=== PATIENT | female | born 1985 | race Caucasian/White ===

== ENCOUNTER → 2021-12-13 | Outpatient (CLI) | payer BC, SELFPAY ==
[2021-12-14 09:17] LABS: T4 Free Direct 0.98 ng/dL (0.76-1.46)
== END | disposition home or self-care (01) ==
LOC: LAB 12-14 08:39
PROVIDERS: PCP Internal Medicine; Referring Provider Internal Medicine; Visit Provider Internal Medicine
DX: N92.6 Irregular menstruation, unspecified (principal); R82.90 Unspecified abnormal findings in urine
CPT/HCPCS: 84439; 84443; 87077; 87086; 87088; 87186

== ENCOUNTER → 2022-04-12 | Outpatient (CLI) | payer BC, SELFPAY ==
[2022-04-12 16:44] LABS: Mucous, Urine 0 SEEN /hpf (<or=2+); Red Blood Cells-Urine 0 SEEN /hpf (0-5)
[2022-04-12 17:44] LABS: Color, Urine Yellow (Yellow); Glucose, Dipstick Normal (Normal); Ketone-Dipstick 5 mg/dl (Negative); Leukocyte Esterase-Dipstick Negative /ul (Negative); Nitrite-Dipstick Negative (Negative); Occult Blood-Urine Negative /ul (Negative); Protein-Dipstick Negative (Negative); Specific Gravity, Urine 1.015 (1.002-1.030); Urine Bilirubin Dipstick Negative (Negative); Urine Clarity Sl. Cloudy (Clear); Urine Urobilinogen Normal (Normal); Urine pH 6.5 (5.0 - 8.0)
[2022-04-12 20:07] LABS: Bacteria 2+ /hpf (None Seen); Squamous Epithelial Cells - UA 0-5 SEEN /hpf (5-10); White Blood Cells 0-5 SEEN /hpf (0-5)
== END | disposition home or self-care (01) ==
LOC: LAB 16:37
PROVIDERS: PCP Internal Medicine; Visit Provider Internal Medicine
DX: R82.90 Unspecified abnormal findings in urine (principal)
CPT/HCPCS: 81001; 87086

== ENCOUNTER → 2022-04-25 | Outpatient (CLI) | payer BC, SELFPAY ==
--- NOTE | 2022-04-25 09:00 | US_ITS ---
EXAM: US ABDOMEN LIMITED, LEFT UPPER QUADRANT CLINICAL INDICATION: Left Flank Pain TECHNIQUE: Real-time ultrasound of the right upper quadrant with image documentation. This report was created using [employer] report generation technology. COMPARISON: None. FINDINGS: PANCREAS: Unremarkable as visualized. Not fully seen distally. No focal abnormality is demonstrated in the pancreas. No pancreatic ductal dilatation. LEFT KIDNEY: 10.2 cm x 4.9 cm x 4.3 cm. 4 mm x 3 mm presumed echogenic stone at the lower pole. No hydronephrosis. SPLEEN: 9.3 cm x 4.2 cm x 4.3 cm. Patent perihilar vessels. US/Abdomen Limited IMPRESSION: Left nephrolithiasis. No hydronephrosis. Unremarkable visualized portions of pancreas and spleen. Note left upper quadrant fluid demonstrated. Electronically Signed: Laisha Douglas MD at 8:52 EST ,
== END | disposition home or self-care (01) ==
LOC: US 08:56
PROVIDERS: PCP Internal Medicine; Referring Provider Internal Medicine; Visit Provider Internal Medicine
DX: N20.0 Calculus of kidney (principal)
CPT/HCPCS: 76705

== ENCOUNTER → 2022-05-28 | Outpatient (CLI) | payer BC, SELFPAY ==
--- NOTE | 2022-05-28 15:18 | CT_ITS ---
STUDY: CT ABDOMEN AND PELVIS WITH CONTRAST REASON FOR EXAM: Female, 36 years old. Abnormal US. LUQ fluid collection RADIATION DOSAGE (If Supplied By Facility): CTDIvol = ( 15.36 ) mGy, DLP = ( 964.61 ) mGycm TECHNIQUE: Transaxial images were obtained from the dome of the diaphragm to the symphysis pubis without oral contrast. Oral and amp; IV Readi-CAT and amp; 100mL Isovue-300 was administered. Sagittal and coronal images were reconstructed. Individualized dose optimization techniques were used for this CT. COMPARISON: None. FINDINGS: The visualized lung bases are unremarkable. The visualized portions of the heart are within normal limits. Normal liver. The gallbladder is contracted. Normal spleen. Normal pancreas. Normal bilateral adrenal glands. Normal right kidney. Normal left kidney. Normal visualized stomach. Normal small intestine. Normal colon. The appendix is visualized and appears normal. Appendix seen on coronal recon images 55 through 60 Normal abdominal aorta. Normal inferior vena cava. Normal retroperitoneum. Normal urinary bladder. Normal visualized uterus. Physiologic ovarian cysts noted. Normal abdominal wall. Normal osseous structures. CT/Abdomen/Pelvis WITH Contrast IMPRESSION: No suspicious solid organ abnormality No free intraperitoneal fluid, air, or suspicious adenopathy. Normal appendix visualized Electronically Signed: Ab Orosco MD at 15:38 EDT ,
== END | disposition home or self-care (01) ==
LOC: CT 14:53
PROVIDERS: PCP Internal Medicine; Referring Provider Nurse Practitioner Family; Visit Provider Nurse Practitioner Family
DX: R93.5 Abnormal findings on diagnostic imaging of other abdominal regions, including retroperitoneum (principal); R10.12 Left upper quadrant pain
CPT/HCPCS: 74177; Q9967

== ENCOUNTER → 2022-06-07 | Outpatient (CLI) | payer BC, SELFPAY ==
[2022-06-07 10:52] LABS: Color, Urine Yellow (Yellow); Glucose, Dipstick Normal (Normal); Ketone-Dipstick 5 mg/dl (Negative); Leukocyte Esterase-Dipstick 100 /ul (Negative); Nitrite-Dipstick Negative (Negative); Occult Blood-Urine Negative /ul (Negative); Protein-Dipstick Negative (Negative); Specific Gravity, Urine 1.015 (1.002-1.030); Urine Bilirubin Dipstick Negative (Negative); Urine Clarity Clear (Clear); Urine Urobilinogen Normal (Normal); Urine pH 6.5 (5.0 - 8.0)
[2022-06-07 11:07] LABS: Mucous, Urine RARE /hpf (<or=2+); Squamous Epithelial Cells - UA 0-5 SEEN /hpf (5-10); White Blood Cells 5-10 SEEN /hpf (0-5)
[2022-06-07 11:09] LABS: Red Blood Cells-Urine 0-5 SEEN /hpf (0-5)
[2022-06-07 11:10] LABS: Bacteria 1+ /hpf (None Seen)
== END | disposition home or self-care (01) ==
LOC: LAB 09:50
PROVIDERS: PCP Internal Medicine; Referring Provider Internal Medicine; Visit Provider Internal Medicine
DX: R30.0 Dysuria (principal)
CPT/HCPCS: 81001; 87086

== ENCOUNTER → 2022-09-16 | Outpatient (CLI) | payer BC, SELFPAY | END | disposition home or self-care (01) | LOC: LABSPEC 15:15 | PROVIDERS: PCP Internal Medicine; Referring Provider Nurse Practitioner Women's Health; Visit Provider Nurse Practitioner Women's Health | DX: N94.9 Unspecified condition associated with female genital organs and menstrual cycle (principal) | CPT/HCPCS: 87070; 87205 ==

== ENCOUNTER → 2023-04-03 | Outpatient (CLI) | payer BC, SELFPAY ==
[2023-04-03 16:26] LABS: Bacteria 0 SEEN /hpf (None Seen); Mucous, Urine 0 SEEN /hpf (<or=2+); Red Blood Cells-Urine 0 SEEN /hpf (0-5); White Blood Cells 0 SEEN /hpf (0-5)
[2023-04-03 17:05] LABS: Color, Urine Yellow (Yellow); Glucose, Dipstick Normal (Normal); Ketone-Dipstick Negative (Negative); Leukocyte Esterase-Dipstick Negative /ul (Negative); Nitrite-Dipstick Negative (Negative); Occult Blood-Urine Negative /ul (Negative); Protein-Dipstick Negative (Negative); Urine Bilirubin Dipstick Negative (Negative); Urine Clarity Clear (Clear); Urine Urobilinogen Normal (Normal); Urine pH 6.5 (5.0 - 8.0)
[2023-04-03 17:25] LABS: Squamous Epithelial Cells - UA 0-5 SEEN /hpf (5-10)
== END | disposition home or self-care (01) ==
LOC: LABSPEC 16:26
PROVIDERS: PCP Internal Medicine; Visit Provider Internal Medicine
DX: R30.0 Dysuria (principal)
CPT/HCPCS: 81001

== ENCOUNTER → 2023-06-12 | Outpatient (CLI) | payer BC, SELFPAY | END | disposition home or self-care (01) | LOC: LABSPEC 16:56 | PROVIDERS: PCP Internal Medicine; Referring Provider Nurse Practitioner Family; Visit Provider Nurse Practitioner Family | DX: N76.0 Acute vaginitis (principal); R30.0 Dysuria | CPT/HCPCS: 87070; 87077; 87086; 87088; 87186; 87205 ==

== ENCOUNTER → 2023-10-24 | Outpatient (CLI) | payer BC, SELFPAY | END | disposition home or self-care (01) | PROVIDERS: PCP Internal Medicine; Referring Provider Physician Assistant Surgical; Visit Provider Physician Assistant Surgical | DX: N39.0 Urinary tract infection, site not specified (principal) | CPT/HCPCS: 87077; 87086; 87088; 87186 ==

== ENCOUNTER → 2024-01-25 | Outpatient (CLI) | payer BC, SELFPAY | END | disposition home or self-care (01) | LOC: LABSPEC 01-26 10:50 | PROVIDERS: PCP Internal Medicine; Referring Provider Nurse Practitioner Family; Visit Provider Nurse Practitioner Family | DX: R30.0 Dysuria (principal) ==

== ENCOUNTER → 2024-03-31 | Outpatient (CLI) | payer BC, SELFPAY ==
--- NOTE | 2024-03-31 08:56 | US_ITS ---
PROCEDURE: BREAST LIMITED UNILATERAL REASON FOR EXAM: Left breast pain. TECHNIQUE: Targeted left breast ultrasound. COMPARISON: Comparison is made with prior mammogram done earlier in the day. FINDINGS: LEFT: Left breast ultrasound was targeted to the upper lateral aspect of the left breast.. The breast tissue appears sonographically normal. No cyst, solid mass, or suspicious shadowing. US/Breast Limited Unilateral IMPRESSION: BI-RADS 0: INCOMPLETE - NEED ADDITIONAL IMAGING EVALUATION. Follow-up code: Targeted left mammogram recommended. Reading Location: [place] [id number]
--- NOTE | 2024-03-31 08:56 | BI_ITS ---
PROCEDURE: DIAG MAMM W/CAD, BILAT REASON FOR EXAM: F, Age 38 y/o , left breast pain. Baseline study. TECHNIQUE: Bilateral screening digital breast tomosynthesis with 2D and 3D images. Computer aided detection. COMPARISON: Baseline study. FINDINGS: The breasts are heterogeneously dense which may obscure small masses. There is a 5.4 mm well-defined nodule in the mid depth upper lateral aspect of the left breast. Correlation with ultrasound is recommended. No suspicious masses, areas of developing architectural distortion, or suspicious calcifications. BI/DIAG MAMM W/CAD, BILAT IMPRESSION: 5.4 mm well-defined nodule in the mid depth upper lateral aspect of the left br east. Sonographic correlation recommended. BI-RADS category 0 Follow-up code: Ultrasound recommended. The patient will be notified of the results by letter. Reading Location: [place] [id number]
== END | disposition home or self-care (01) ==
LOC: OPBI 08:55
PROVIDERS: PCP Internal Medicine; Referring Provider Internal Medicine; Visit Provider Internal Medicine
DX: N64.4 Mastodynia (principal)
CPT/HCPCS: 76642; 77062; 77066; G0279

== ENCOUNTER → 2024-08-02 | Outpatient (CLI) | payer BC, SELFPAY ==
[2024-08-02 12:27] LABS: Absolute Lymphocyte Count 2.85 X10^3/uL (0.83-4.51); Absolute Neutrophil Count 2.4 X10^3/uL (2.0-7.7); Basophil# 0.06 X10^3/uL; Eosinophil# 0.13 X10^3/uL; Eosinophils% 2.1 % (0-5); Hematocrit 37.7 % (37-47); Hemoglobin 11.8 g/dL (12.0-15.0); Lymphocyte # 2.85 X10^3/ul (0.83-4.51); Mean Corp Hgb Conc 31.3 g/dL (32-36); Mean Corpuscular Hgb 25.3 pg (27.0-32.0); Mean Corpuscular Volume 80.7 fL (81-99); Mean Platelet Vol. 10.5 fl (6.2-12.0); Monocyte# 0.58 X10^3/uL; Monocyte% 9.6 % (0-10); NRBC Flagged by Analyzer 0 % (0-5); Neutrophil # 2.43 X10^3/uL (2.7-7.7); Platelet Count 335 K/mm3 (150-450); RBC Distribution Width CV 16.4 % (11.6-14.6); RBC Distribution Width SD 47.7 fl (35.1-43.9); Red Blood Count 4.67 M/mm3 (4.2-5.4); White Blood Count 6.1 K/mm3 (4.4-11.0)
[2024-08-02 13:49] LABS: Iron 38 ug/dL (50-170); Iron Binding Capacity,Total 436 ug/dL (250-450); Iron Binding Capacity,Unsat 398 ug/dL (228-428)
[2024-08-02 13:53] LABS: Ferritin 7 ng/mL (22-378)
--- OUTSIDE RECORDS SUMMARY | 2024-08-02 20:52 | XMS RPT_ITS | CCD ---
Author Organization [facility] Care Team Providers Care Forensic Structural Engineer Name Role Phone Dr. Ning Hyman Primary Care Provider [phone] Dr. Ning Hyman Attending Provider [phone] Dr. Ning Hyman Referring Provider [phone] Dr. Ning Hyman Primary Care Provider [phone] Dr. Ning Hyman Attending Provider [phone] Dr. Ning Hyman Referring Provider [phone] Michele FRENCH, MANOLO-Geovanna Talley Attending Provider Dr. Ning Hyman Primary Care Provider [phone] Dr. Ning Hyman Attending Provider [phone] Dr. Ning Hyman Referring Provider [phone] Dr. Ning Hyman Primary Care Provider [phone] Dr. Ning Hyman Attending Provider [phone] Dr. Ning Hyman Referring Provider [phone] OBED Rodriges Attending Provider Ning Hyman Primary Care Unavailable Jerry Akhtar Attending Unavailable Jerry Akhtar Referring Unavailable Boogie, Ning Primary Care Unavailable Roof CONCRETE BUILDINGS ASSEMBLER, Willard John Attending Unavailable Roof CONCRETE BUILDINGS ASSEMBLERWillard Referring Unavailable Ning Hyman Attending Unavailable Greg Hymanongbe Referring Unavailable Boogie Efewongbe Primary Care Unavailable Oletemi, Efewongbe Primary Care Unavailable Oleghe, Efewongbe Referring Unavailable Jerry Akhtar Attending Unavailable Oleghe, Efewongbe Referring Unavailable Oleghe, Efewongbe Primary Care Unavailable Andreas CONCRETE BUILDINGS ASSEMBLER, Willard John Attending Unavailable Oleghe, Efewongbe Attending Unavailable Oleghe, Efewongbe Referring Unavailable Oleghe, Efewongbe Primary Care Unavailable Hillary Rodriges Attending Unavailable Oleghe, Efewongbe Primary Care Unavailable Oleghe, Efewongbe Referring Unavailable Hillary Rodriges Attending Unavailable Oleghe, Efewongbe Primary Care Unavailable Oleghe, Efewongbe Referring Unavailable Hillary Rodriges Attending Unavailable Oleghe, Efewongbe Primary Care Unavailable Hillary Rodriges Referring Unavailable Salvatoree , Dr. Barclay Primary Care Provider Boogie HALEY, Dr. Barclay Attending Provider [phone] Boogie HALEY, Dr. Barclay Referring Provider [phone] Medications Current Medications Medication Drug Class(es) Dates Sig (Normalized) Sig (Original) [place] (Nk) (3 sources) Start: 08-02-2024 [place] (Nk) A ctive August 02, 2024 12:00am Start: 09-16-2022 [place] (Nk) A ctive September 15, 2022 11:00pm Start: 09-16-2022 [place] (Nk) A ctive September 16, 2022 12:00am Completed/Discontinued Medications Medication Drug Class(es) Dates Sig (Normalized) Sig (Original) Fish Oils (9 sources) Start: 12-14-2021 End: 04-19-2022 fish oil Discontinued PO December 14, 2021 12:00am April 19, 2022 2:49pm Start: 12-14-2021 End: 04-19-2022 fish oil Discontinued PO Nov 11:00pm April 19, 2022 1:49pm Start: 12-14-2021 fish oil Activ e PO December 14, 2021 12:00am fluconazole 150 mg oral tablet (2 sources) Azole Antifungal Start: 06-01-2024 End: 08-02-2024 Fluconazole 150 mg tablet Discontinued 150 mg PO Every 3 Days 2 June 01, 2024 12:00am August 02, 2024 8:38am may repeat second dose 72 hrs after first dose if symptoms persist Start: 02-02-2024 End: 03-26-2024 Fluconazole 150 mg tablet Di scontinued 150 mg PO Every 3 Days 2 February 02, 2024 1:00am March 26, 2024 10:34am may repeat second dose 72 hrs after first dose if symptoms persist ibuprofen 200 mg oral capsule (2 sources) Nonsteroidal Anti-inflammatory Drug Start: 06-03-2023 End: 01-25-2024 take 1 capsule by mouth every six hours as needed Ibuprofen (Motrin Ib) 200 mg capsule Discontinued 200 mg PO EVERY 6 HOURS as needed June 03, 2023 12:00am January 25, 2024 2:25pm levoFLOXacin 500 mg oral tablet (9 sources) Quinolone Antimicrobial Start: 12-17-2021 End: 04-19-2022 take 1 tablet by mouth once daily Levofloxacin 500 mg tablet Discontinued 500 mg PO DAILY 5 December 17, 2021 12:00am April 19, 2022 2:50pm Lidocaine (2 sources) Antiarrhythmic, Amide Local Anesthetic Start: 06-03-2023 End: 01-25-2024 Lidocaine Hcl (Aspercreme (Lidocaine Hcl)) 4 % cream Discontinued 1 NMA TOPICAL TWICE A DAY as needed for pain 120 June 03, 2023 12:00am January 25, 2024 2:25pm Start: 06-03-2023 Lidocaine Hcl (Aspercreme (Lidocaine Hcl)) 4 % cream Active 1 APPLIC TOPICAL TWICE A DAY 120 June 03, 2023 12:00am metroNIDAZOLE 500 mg oral tablet (5 sources) Nitroimidazole Antimicrobial Start: 06-07-2022 End: 09-16-2022 take 1 tablet by mouth twice daily Metronidazole 500 mg tablet Discontinued 500 mg PO TWICE A DAY 14 June 07, 2022 12:00am September 16, 2022 2:16pm Multivitamin preparation (8 sources) Start: 12-14-2021 End: 04-19-2022 take 1 tablet by mouth once daily Multivitamin Discontinued 1 TABLET PO DAILY December 14, 2021 12:00am April 19, 2022 2:50pm Start: 12-14-2021 End: 04-19-2022 take 1 tablet by mouth once daily Multivitamin Discontinued 1 TABLET PO DAILY December 13, 2021 11:00pm April 19, 2022 1:50pm Start: 12-14-2021 take 1 tablet by thomas th once daily Multivitamin Active 1 TABLET PO DAILY December 14, 2021 12:00am Multivitamin tablet (1 source) Start: 12-14-2021 End: 04-19-2022 Multivitamin tablet Discontinued 1 {tbl} PO DAILY December 14, 2021 12:00am April 19, 2022 2:50pm nitrofurantoin, macrocrystals 100 mg oral capsule (2 sources) Nitrofuran Antibacterial Start: 06-16-2023 End: 06-21-2023 take 1 capsule by mouth twice daily at mealtime Nitrofurantoin Macrocrystal 100 mg capsule Discontinued 100 mg PO TWICE A DAY 10 June 16, 2023 12:00am June 20, 2023 12:00am June 21, 2023 12:15am must administer with a meal/food nitrofurantoin, macrocrystals 25 mg / nitrofurantoin, monohydrate 75 mg oral capsule (2 sources) Nitrofuran Antibacterial Start: 01-25-2024 End: 02-01-2024 take 1 capsule by mouth every twelve hours at mealtime Nitrofurantoin Monohyd/M-Cryst (Macrobid) 100 mg capsule Discontinued 100 mg PO Q12H 14 January 25, 2024 1:00am January 31, 2024 1:00am February 01, 2024 1:09am must administer with a meal/food Start: 10-24-2023 End: 10-31-2023 take 1 capsule by mouth every twelve hours at mealtime Nitrofurantoin Monohyd/M-Cryst 100 mg capsule Discontinued 1 NMA PO Q12H 14 October 24, 2023 12:00am October 30, 2023 12:00am October 31, 2023 12:05am administer with a meal/food; swallow whole; do not open, crush, dissolve , or chew Vitamin D (9 sources) Start: 12-14-2021 End: 04-19-2022 vitamin d Discontinued PO Oc tober 2021 12:00am April 19, 2022 2:50pm Start: 12-14-2021 End: 04-19-2022 vitamin d Discontinued PO Oc tober 2021 11:00pm April 19, 2022 1:50pm Start: 12-14-2021 vitamin d Acti ve PO December 14, 2021 12:00am Problems Active Problems Problem Classification Problem Date Documented Date Episodic/Chronic Abdominal pain (20 sources) Left flank pain; Translations: [Unspecified abdominal pain] 04-19-2022 Episodic Comment on above: improved with diet, lubricants. Genitourinary symptoms and ill-defined conditions (20 sources) Abnormal urinalysis; Translations: [Unspecified abnormal findings in urine] Onset: 02-24-2024 Episodic Menstrual disorders (10 sources) Irregular periods; Translations: [Irregular menstruation, unspecified] Chronic Nonmalignant breast conditions (2 sources) Mastodynia; Translations: [Pain of left breast] Onset: 04-14-2024 03-26-2024 Episodic Other female genital disorders (9 sources) Vaginal dryness; Translations: [Other specified noninflammatory disorders of vagina] 12-14-2021 Episodic Other female genital disorders (1 source) Other specified noninflammatory disorders of vagina; Translations: [Other specified symptoms associated with female genital organs] Episodic Other screening for suspected conditions (not mental disorders or infectious disease) (8 sources) Ultrasonography of abdomen abnormal; Translations: [Abnormal findings on diagnostic imaging of other abdominal regions, including retroperitoneum] 05-01-2022 Episodic Comment on above: nl pap 2021 Other skin disorders (2 sources) Epidermal cyst; Translations: [Sebaceous cyst] 06-03-2023 Episodic Past or Other Problems Problem Classification Problem Date Documented Da te Episodic/Chronic Inflammatory diseases of female pelvic organs (4 sources) Vaginitis; Translations: [Acute vaginitis] Onset: 06-18-2023 06-07-2022 Episodic Urinary tract infections (1 source) Urinary tract infection, site not specified; Translations: [Urinary tract infection, site not specified] Onset: 11-15-2023 Episodic Results Test Name Value Interpretation Reference Range Facility Breast Limited Unilateralon 03-31-2024 Breast Limited Unilateral [facility] [address] [place] [address] Breast Limited Unilateral MR#: [id number] Acct: [id number] Name: DIVYA SULLIVAN Rep #: [id number] : 1985 F 38 From: Ford dunn MD PCP: Dr. Ning Hyman MD Status: REG CLI Study: Breast Limited Unilateral Date of Exam: Exam# [id number] Ordering Dr: Ning Hyman MD PROCEDURE: BREAST LIMITED UNILATERAL REASON FOR EXAM: Left breast pain. TECHNIQUE: Targeted left breast ultrasound. COMPARISON: Comparison is made with prior mammogram done earlier in the day. FINDINGS: LEFT: Left breast ultrasound was targeted to the upper lateral aspect of the left breast.. The breast tissue appears sonographically normal. No cyst, solid mass, or suspicious shadowing. US/Breast Limited Unilateral IMPRESSION: BI-RADS 0: INCOMPLETE - NEED ADDITIONAL IMAGING EVALUATION. Follow-up code: Targeted left mammogram recommended. Reading Location: [place] [address] CC: Dr. Ning Hyman MD Debt Recovery Officer: Signed Normal [facility] DIAG MAMM W/CAD, BILATon DIAG MAMM W/CAD, [facility] [address] [place], [place] [address] DIAG MAMM W/CAD, BILAT MR#: [id number] Acct: [id number] Name: DIVYA SULLIVAN Rep #: [id number] : 1985 F 38 From: Ford dunn MD PCP: Dr. Ning Hyman MD Status: REG CLI Study: DIAG MAMM W/CAD, BILAT Date of Exam: 03/31/24 Exam# [id number] Ordering Dr: Ning Hyman MD ADDENDUM by Dr. Ford Grewal MD on 04/09/24 at 1117 Additional views of the left breast were obtained. Compression spot views in the mediolateral oblique and craniocaudad projections as well as a 90 degree lateral view were obtained. No mammographic abnormality is seen. BI-RADS category: 1 Reading Location: [facility] 04/09/24 1118 Date cc: Dr. Ning Hyman MD * Signed PROCEDURE: DIAG MAMM W/CAD, BILAT REASON FOR EXAM: F, Age 38 y/o , left breast pain. Baseline study. TECHNIQUE: Bilateral screening digital breast tomosynthesis with 2D and 3D images. Computer aided detection. COMPARISON: Baseline study. FINDINGS: The breasts are heterogeneously dense which may obscure small masses. There is a 5.4 mm well-defined nodule in the mid depth upper lateral aspect of the left breast. Correlation with ultrasound is recommended. No suspicious masses, areas of developing architectural distortion, or suspicious calcifications. BI/DIAG MAMM W/CAD, BILAT IMPRESSION: 5.4 mm well-defined nodule in the mid depth upper lateral aspect of the left breast. Sonographic correlation recommended. BI-RADS category 0 Follow-up code: Ultrasound recommended. The patient will be notified of the results by letter. Reading Location: [facility] CC: Dr. Ning Hyman MD Debt Recovery Officer: Signed Normal [facility] Internal Medicine Office Vis lennie 03-26-2024 Internal Medicine Office Visit [facility] [address] [place] [id number] OFFICE VISIT Date of Service: 03/26/24 MR#: [id number] Acct: [id number] Name: DIVYA SULLIVAN Rep #: [id number] : 1985 Provider: Dr. Ning ingram MD Age/Sex: 38/F Location: [facility] Status: Signed Intake Vital Signs 01/25/24 13:26 03/26/24 09:34 Height 5 ft 5 in 5 ft 5 in Weight: 182 lb 4 oz 176 lb BMI 30.3 29.2 BP 108/64 100/80 Blood Pressure Location Lt brachial Lt brachial Position Sitting Sitting Respiration 18 16 Pulse 79 72 Pulse Source Monitor Monitor Temp 97.5 F L 97.8 F Temp Source Temporal Temporal Pulse Oximetry (%) 99 99 Oxygen Delivery Method room air room air Intake Visit Reasons: RT BREAST PAIN Chief Complaint: Left breast pain Is patient in pain?: No Allergies No Known Allergies Allergy (Verified 03/26/24 09:33) [facility] Medical History (Updated 03/26/24 @ 12:[address] 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 history of recent travel: No sexually active: Yes Smoking Status: Never smoker alcohol intake: current alcohol intake frequency: a few times a week substance use type: does not use well-balanced diet: about half the time caffeine: Yes eating out: 1-3 times/week during the past year weight has: decreased > 10 lbs what type of physical activity do you participate in: walking frequency: 1-2 times per week liz/mormonism: Moravian seatbelt use: always do you feel safe at home: Yes additional social history: - [employer] HPI HPI Chief Complaint: Left breast pain Details: DIVYA SULLIVAN, is a 38 F who presents to the office today for acute visit. She states that she has had intermittent left breast pain for a few months. No known precipitating factor and not necessarily cyclical. No palpable masses or nipple discharge. No prior history of. ROS Const Constitutional: No body ache, chills, excessive sweating, fatigue, fever(s), frequent falls, headache(s), snoring, weakness, sleep problems or change in appetite Eyes Eyes: No blurry vision, change in vision or Light sensitivity ENT ENT: No abnormal hearing, ear or mastoid pain, tinnitus, nasal congestion, nasal discharge, headache(s), neck pain or sore throat Resp Respiratory: No cough, shortness of breath, snoring or wheezing Cardio Cardiology: No chest pain at rest, chest pain with exertion, excessive sweating, shortness of breath, dyspnea on exertion, lightheadedness, orthopnea or palpitations Gastro GI: No abdominal pain, change in bowel habits, constipation, cramping, diarrhea or nausea/dyspepsia Genitourinary-Female : No burning urination, painful urination, urinary incontinence or urinary frequency Musc Musculoskeletal: No abnormal gait, joint pain, back pain, limited range of motion, muscle weakness, neck pain or numbness Skin Skin: No dry skin, redness, lesions, itchy eyes, rash or wounds Breast Breast: Positive for breast pain (LEFT SIDED; TUGGING, SHARP AT TIMES; INTO AXILLAE SINCE 12/2023) Neuro Neurology: No abnormal gait, abnormal hearing, weakness, frequent falls, headache(s), memory loss or numbness Psych Psychiatric: No anxiety, No change in appetite, No depression, No memory loss, No panic attacks and No Thoughts of harming yourself/Others Endo Endocrine: No cold intolerance, excessive sweating, fatigue, flushing, heat intolerance, increased thirst/drinking or increased hunger Aller/Imm Allergy/Immunologic: No itchy eyes, seasonal allergy symptoms, hives or wheezing Exam Const General: cooperative, comfortable and no acute distress Orientation: alert, awake and oriented x3 HENMT Head: normal to inspection, normocephalic and atraumatic Ears: hearing grossly normal bilaterally Eyes General: appearance normal, both eyes and all related structures Neck Neck: normal visual inspection, full ROM and supple Neck mass: No Resp Effort Inspection: normal respiratory effort and able to speak in complete sentences Auscultation: Bilateral: Clear to Auscultation Cardio Rate: regular rate Rhythm: regular rhythm Heart Sounds: S1 normal and S2 normal GI Palpa (more content not included)... Normal [facility] Office Visit Reporton 2023 Office Visit Report [facility] [address] [place] [address] OFFICE VISIT Date of Service: 01/25/24 MR#: [id number] Acct: [id number] Patient: DIVYA SULLIVAN Rep #: [id number] : 1985 Provider: OBED burns Age/Sex: 38/F Location: [facility] Status: Signed Intake Vital Signs 06/12/23 14:29 01/25/24 09:56 01/25/24 13:26 Height 5 ft 5 in 5 ft 5 in 5 ft 5 in Weight: 182 lb 4 oz BMI 30.3 BP 108/64 Blood Pressure Location Lt brachial Position Sitting Respiration 18 Pulse 79 Pulse Source Monitor Temp 97.5 F L Temp Source Temporal Pulse Oximetry (%) 99 Oxygen Delivery Method room air Intake Visit Reasons: Urinary tract infection Allergies No Known Allergies Allergy (Verified 01/25/24 13:25) Medications ???Medication ???Instructions ???Recorded ???Confirmed ???Type nitrofurantoin 100 mg PO Q12H 7 days #14 caps 01/25/24 01/25/24 Rx monohydrate/macrocry stals 100 mg capsule (Macrobid) Is last menstrual period known: Yes PFSH Medical History Cervical cancer screening Burning with urination Abnormal US (ultrasound) of abdomen Left flank pain Vaginal dryness Menstrual irregularity Pre-eclampsia Hives UTI (urinary tract infection) Back problem Surgical History H/O tubal ligation Hearing loss Family History Grandfather Cancer Mother High cholesterol Other Alcoholism Social History adopted: No household members: spouse housing: house current occupational status: employed 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 history of recent travel: No sexually active: Yes Smoking Status: Never smoker alcohol intake: current alcohol intake frequency: a few times a week substance use type: does not use well-balanced diet: about half the time caffeine: Yes eating out: 1-3 times/week during the past year weight has: decreased > 10 lbs what type of physical activity do you participate in: walking frequency: 1-2 times per week liz/mormonism: Moravian seatbelt use: always do you feel safe at home: Yes 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 She states UTI three months ago. She states she is leaving for a cruise tomorrow. She states dysuria. ROS Const Constitutional: No body ache, chills, fatigue, fever(s) (no fever greater than 99.9 F), malaise, night sweats or other (rigors) Resp Respiratory: No shortness of breath Cardio Cardiology: No chest pain at rest or chest pain with exertion Gastro GI: No abdominal pain Genitourinary-Female : Positive for burning urination and suprapubic fullness; No painful urination, urinary frequency, urinary urgency, blood in urine or side pain Endo Endocrine: No fatigue Exam Const General: cooperative, healthy appearing, comfortable and no acute distress Orientation: alert, awake and oriented x3 Chest Chest palpation inspection: normal inspection of the chest Resp Effort Inspection: normal respiratory effort Auscultation: Bilateral: Clear to Auscultation Cardio Rhythm: other (Normal) Heart Sounds: S1 normal, S2 normal and no murmurs GI Inspection: normal to inspection and non-distended Auscultation: normal bowel sounds Palpation: soft and nontender General: No CVA tenderness Skin General: no rashes or lesions noted Coding Level of Care Code Off vis,est,level 3 Diagnoses Acute cystitis with hematuria N30.01 Urinary tract infection type: acute cystitis Hematuria presence: with hematuria Assessment and Plan Assessment and Plan (1) Urinary tract infection: Qualifiers: Urinary tract infection type: acute cystitis Hematuria presence: with hematuria Qualified Code(s): N30.01 - Acute cystitis with hematuria Plan: She had urine culture checked in October 2023 that grew Staphylococcus Lugdunensis. Will treat with Macrobid today based on urine dip. She was encouraged to see specialist regarding reoccurring infection. Encouraged to get plenty of rest, drink lots of clear liquids, and use Tylenol or Ibuprofen (unless contraindicated) for fever and comfort. Patient also educated on other symptomatic management techniques. To be seen in 7-10 days if no improvement; sooner if worsening of symptoms.??? Patient advised of potential red flags and when appropriate to report to the ED.??? Patient verbalized understanding and agreement with all the above. Orders: Orders POC Urinalysis Dip (Clinic) Today R30.0 - Dysuria Urinalysis, Complete Today R30.0 - Dysuria Culture, Urine Today R30.0 - Dysu (more content not included)... Normal [facility] Urine Cultureon 09-08-2024 [facility] Staphylococcus lugdunensis [place] Count 25,000-50,000 Staphylococcus lugdunensis: REACTION cefOXitin Susc Islt NEG Clindamycin.induced Susc Islt NEG Gentamicin Islt GIULIANA <=0.5 S Nitrofurantoin Islt GIULIANA <=16 S Oxacillin Susc Islt 2 S Tetracycline Islt GIULIANA <=1 S Vancomycin Islt GIULIANA <=0.5 S Normal [facility] Comment on above: Performed By: #### M 100.2200 #### [facility] [address] [place], [address] Urgent Care Visit Reporton 0 10-24-2023 Urgent Care Visit Report [facility] [address], [address] [place] [address] OFFICE VISIT Date of Service: 10/24/23 MR#: [id number] Acct: [id number] Name: DIVYA SULLIVAN Rep #: [id number] : 1985 Provider: MYRON Downing Age/Sex: 38/F Location: [facility] Status: Signed Intake Vital Signs 06/12/23 14:29 10/24/23 15:03 Height 5 ft 5 in BP 110/60 Blood Pressure Location Lt brachial Position Sitting Respiration 15 Pulse 67 Pulse Source NIBP Temp 98.7 F Temp Source Temporal Pulse Oximetry (%) 98 Oxygen Delivery Method room air Intake Visit Reasons: uti Chief Complaint: Flank pain, dysuria Environmental Technical Officer Required: No Is patient in pain?: Yes Allergies No Known Allergies Allergy (Verified 10/24/23 15:03) Is last menstrual period known: No Post menopausal: No Patient : No Have you fallen in the past year?: No Nurse's Note: Flank pain, dysuria x 5-7 days. denies abd pain, fever, blood in urine. 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 travel: No sexually active: Yes Smoking Status: Never smoker alcohol intake: current alcohol intake frequency: a few times a week substance use type: does not use well-balanced diet: about half the time caffeine: Yes eating out: 1-3 times/week during the past year weight has: decreased > 10 lbs what type of physical activity do you participate in: walking frequency: 1-2 times per week liz/mormonism: Moravian seatbelt use: always do you feel safe at home: Yes 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 Patient denies fever, chills, sweats. No nausea, vomiting, diarrhea. No hemoptysis, shortness of breath or difficulty breathing. No loss of taste or smell. No other associated symptoms or alleviating/aggravat ing factors. ROS Const Constitutional: Positive for other (6 system ROS completed with pertinent findings in the HPI otherwise normal.) Exam Const General: cooperative and healthy appearing Resp Effort Inspection: normal respiratory effort Auscultation: Bilateral: Clear to Auscultation Cardio Rate: regular rate Rhythm: regular rhythm GI Auscultation: normal bowel sounds General: No CVA tenderness Psych Appearance: grossly normal Mental Status: mental status grossly normal Results POC Urinalysis Dip (Clinic) Office Urine Color Yellow Last Edit by Rosa Isela Fuentes on 10/24/23 15:08 Office Urine Clarity [place] Last Edit by Rosa Isela Fuentes on 10/24/23 15:08 Office Urine Glucose Negative Last Edit by Rosa Isela Fuentes on 10/24/23 15:08 Office Urine Ketones Negative Last Edit by Rosa Isela Fuentes on 10/24/23 15:08 Off Ur Spec [place] 1.005 Last Edit by Rosa Isela Fuentes on 10/24/23 15:08 Office Urine pH 6.5 Last Edit by Rosa Isela Fuentes on 10/24/23 15:08 Office Urine Bilirubin Negative Last Edit by Rosa Isela Fuentes on 10/24/23 15:08 Office Urine Urobilinogen Negative Last Edit by Rosa Isela Fuentes on 10/24/23 15:08 Office Urine Blood Trace Last Edit by Rosa Isela Fuentes on 10/24/23 15:08 Office Urine Blood Hemolyzed NA Last Edit by Rosa Isela Fuentes on 10/24/23 15:08 Office Urine Protein Trace Last Edit by Rosa Isela Fuentes on 10/24/23 15:08 Office Urine Nitrate Negative Last Edit by Rosa Isela Fuentes on 10/24/23 15:08 Off Ur Leukocytes Positive Last Edit by Rosa Isela Fuentes on 10/24/23 15:08 Coding Level of Care Code Off vis,new,level 3 Diagnoses Dysuria R30.0 Assessment and Plan Assessment and Plan (1) Dysuria: Status: Acute Orders: Orders POC Urinalysis Dip (Clinic) Today R30.0 - Dysuria Culture, Urine Today N39.0 - Urinary tract infection, site not specified Medications: New nitrofurantoin monohyd/m-cryst 100 mg administer with a meal/food; swallow whole; do not open, crush, dissolve , or chew 1 cap PO Q12H 14 caps 0RF 7 days Plan Macrobid as prescribed today. Encouraged to get plenty of rest, drink lots of cl (more content not included)... Normal [facility] Genital Culture Comprehensiv darren 06-14-2023 VAC Reason for Exam: vaginitis vaginitis Normal vaginal gladys isolated. No yeast, Gardnerella, Neisseria or beta-hemolytic Streptococcus isolated. Normal [facility] Comment on above: Performed By: #### M 100.2000, M100.3200, M100.2200 #### [facility] [address] [place], [place], [id number] Urine Cultureon 06-14-2023 URC Staphylococcus epidermidis [place] Count 50,000-80,000 Staphylococcus epidermidis: REACTION cefOXitin Susc Islt NEG Clindamycin.induced Susc Islt NEG Gentamicin Islt GIULIANA <=0.5 S Linezolid Islt GIULIANA 1 S Nitrofurantoin Islt GIULIANA <=16 S Oxacillin Susc Islt <=0.25 S Tetracycline Islt GIULIANA <=1 S Vancomycin Islt GIULIANA 2 S Normal [facility] Comment on above: Performed By: #### M 100.2000, M100.3200, M100.2200 #### [facility] [address] [place], [address] Culture, urineOrdered By: Dayanna Rodriges on 06-12-2023 Bacteria identified Cx Nom (U) Staphylococcus epidermidis [facility] Gram Stainon 06-12-2023 GS Reason for Exam: vaginitis vaginitis Gram Stain No Gram negative diplococci 4+ Gram positive rods 2+ Epithelial cells 2+ White Blood Cells Score = 0 Interpretation: 0-3 Normal, 4-6 Intermediate, 7-10 Positive BV Normal [facility] Comment on above: Performed By: #### M 100.1999, M100.3200, M100.2200 #### [facility] [address] [place], [place], [id number] Gram stain for investigation of transfusion reactionOrdered By: Hillary Rodriges on 06-12-2023 Microscopic observation Gram stain Nom (Unsp spec) [facility] - Chemistry and C hemistry - challengeon 06-12-2023 Bilirubin Ql (U) Negative [facility] Glucose Ql (U) Negative [facility] Ketones Ql (U) Small (15+) [facility] pH (U) 6 [pH] [facility] Specific gravity (U) [Rel density] 1.010 [facility] Urobilinogen (U) [Mass/Vol] Negative [facility] - Hematology and Cell countson 06-12-2023 Hemoglobin Ql (U) Trace [facility] - Specimen inform ationon 06-12-2023 Clarity (U) Clear [facility] Color (U) Dk Yellow [facility] - Urinalysison Nitrite Ql (U) Negative [facility] Protein Ql (U) Negative [facility] No Panel InformationOrdered By: Hillary Rodriges on 06-12-2023 Genital Culture [facility] No Panel Informationon 06-11 Urine Leukocytes Positive [facility] Urine Non-Hemolyzed Blood Trace [facility] POC Bacterial Vaginitis (Rapid) Negative [facility] POC Trichomonas (Rapid) Negative [facility] Snuff Maker Office Visit Reporton 06-12-2023 Snuff Maker Office Visit Report [facility] [address] [place] [address] OFFICE VISIT Date of Service: 06/12/23 MR#: [id number] Acct: [id number] Name: DIVYA SULLIVAN Rep #: [id number] : 1985 Provider: OBED Monge Age/Sex: 37/F [place] [facility] [place]: Signed Intake Vital Signs 06/03/23 13:14 06/12/23 14:27 06/12/23 14:29 Height 5 ft 5 in 5 ft 5 in 5 ft 5 in Weight: 176 lb 178 lb BMI 29.2 29.6 BP 110/76 104/71 Intake Visit Reasons: 1 W FU Environmental Technical Officer Required: No Is patient in pain?: No Allergies No Known Allergies Allergy (Unverified 06/12/23 14:28) Medications ibuprofen 200 mg capsule (Motrin IB) 200 mg PO Q6H PRN 06/03/23 [History Confirmed 06/12/23] lidocaine HCl 4 % topical cream (Aspercreme (lidocaine HCl)) 1 applic topical BID PRN pain #120 grams 06/03/23 [Rx Confirmed 06/12/23] Is last menstrual period known: No Post menopausal: No Patient : No : No PFSH Medical History Abnormal US (ultrasound) of abdomen Back problem Burning with urination Hives Left flank pain Menstrual irregularity Pre-eclampsia UTI (urinary tract infection) Vaginal dryness Surgical History H/O tubal ligation Hearing loss Family History Grandfather Cancer Mother High cholesterol Other Alcoholism Social History adopted: No household members: spouse housing: house current occupational status: employed 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 history of recent travel: No sexually active: Yes Smoking Status: Never smoker alcohol intake: current alcohol intake frequency: a few times a week substance use type: does not use well-balanced diet: about half the time caffeine: Yes eating out: 1-3 times/week during the past year weight has: decreased > 10 lbs what type of physical activity do you participate in: walking frequency: 1-2 times per week liz/mormonism: Moravian seatbelt use: always do you feel safe at home: Yes 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 She reports she does have constant burning to her vaginal tissues but this worsens when she urinates. She recently noted cloudy urine. She has history of reoccurrent UTi's. Patient reports her vaginal pain has improved; she notes there is no pain with intercourse. No concerns for STI's at this time. History 4 Elective abortions Hx Para Spontaneous abortions Hx # Term Pregnancies Ectopic pregnancies Hx # Pregnancies Multiple births # of living children 4 Past Pregnancies Del. Date Name GA/Weeks Outcome Route Bth Weight Gen Labor Lgth Anesthesia Del Locatn Provider FOB Unknown Syed 2006 Unknown Ferm[place] 2007 Unknown Aviana 2008 Unknown Joseph 2010 ROS Const Constitutional: Denies chills, fatigue or fever(s) GI GI: Denies abdominal pain or nausea : Reports vaginal pruritus (and burning.) and other (see HPI); Denies difficulty voiding, hematuria, pelvic pain, urinary incontinence, vaginal discharge, vaginal dryness or vaginal odor Skin Skin/Breast: Denies rash Exam Const General: cooperative, healthy appearing, comfortable, no acute distress, well groomed and well hydrated Nutritional Appearance: well nourished Orientation: alert, awake and oriented x3 HENMT Head: normal to inspection and normocephalic Resp Effort Inspection: normal respiratory effort and able to speak in complete sentences GI Inspection: normal to inspection General: bladder normal to palpation External Female Exam: normal external appearance and normal appearance of the urethra Urethra: normal appearance of the urethra Speculum Exam - Vagina: normal appearance of the vagina, normal vaginal discharge, no lesions, No vaginal bleeding and tenderness (right inclusion cyst; mobile; not tender today.) on the right Speculum Exam - Cervix: normal appearance of the cervix, no lesions and no masses Bimanual Exam- Vagina Uterus: normal bimanual exam, uterine size normal, bladder normal to palpation, normal palpation and non-tender Bimanual Exam- Adnexa, other: normal adnexae, no masses, normal and non-tender Pelvic Support: normal OB/External Speculum: No vaginal bleeding Speculum Exam: no vaginal bleeding Skin General: no rashes or lesions noted Neuro General: patient alert, patient awake, patient oriented x3 and moves all extremities Psych Appearance: grossly normal Mental Status: mental status grossly (more content not included)... Normal [facility] Snuff Maker Office Visit Reporton 06-03-2023 Snuff Maker Office Visit Report [facility] [address] [place] [address] OFFICE VISIT Date of Service: 06/03/23 MR#: [id number] Acct: [id number] Name: DIVYA SULLIVAN Rep #: [id number] : 1985 Provider: OBED Monge Age/Sex: 37/F [place] [facility] [place]: Signed Intake Vital Signs 04/03/23 14:47 06/03/23 13:10 06/03/23 13:14 Height 5 ft 5 in 5 ft 5 in 5 ft 5 in Weight: 174 lb 176 lb BMI 28.9 29.2 BP 110/72 110/76 Blood Pressure Location Lt brachial Position Sitting Respiration 16 Pulse 56 L Pulse Source Monitor Temp 97.4 F L Pulse Oximetry (%) 100 Oxygen Delivery Method room air Intake Visit Reasons: Vaginal Pain Environmental Technical Officer Required: No Is patient in pain?: Yes (burning, zinging pain) Pain scale (1-10): 4 Allergies No Known Allergies Allergy (Unverified 06/03/23 13:15) Medications ibuprofen 200 mg capsule (Motrin IB) 200 mg PO Q6H PRN 06/03/23 [History Confirmed 06/03/23] lidocaine HCl 4 % topical cream (Aspercreme (lidocaine HCl)) 1 applic topical BID PRN pain #120 grams 06/03/23 [Rx Confirmed 06/03/23] Is last menstrual period known: Yes Last Menstrual Period: 05/29/23 Post menopausal: No Patient : No : No PFSH Medical History (Updated 06/03/23 @ 14:49 by OBED Lui) Abnormal US (ultrasound) of abdomen Back problem Burning with urination Hives Left flank pain Menstrual irregularity Pre-eclampsia UTI (urinary tract infection) Vaginal dryness Surgical History H/O tubal ligation Hearing loss Family History Grandfather Cancer Mother High cholesterol Other Alcoholism Social History adopted: No household members: spouse housing: house current occupational status: employed 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 history of recent travel: No sexually active: Yes Smoking Status: Never smoker alcohol intake: current alcohol intake frequency: a few times a week substance use type: does not use well-balanced diet: about half the time caffeine: Yes eating out: 1-3 times/week during the past year weight has: decreased > 10 lbs what type of physical activity do you participate in: walking frequency: 1-2 times per week liz/mormonism: Moravian seatbelt use: always do you feel safe at home: Yes 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 History of UTI's and yeast infections. She reports she feels like there is glass scraping the arceo. She reports no discharge associated with this. She recently finished her menstrual cycle. This most recently started approx 3 days ago. She states she did an apple cider bath, coconut oil, and took motrin (this morning). She is sexually active. Voices no risk of STI's. 1 partner. Female Reproductive History Last Menstrual Period: 05/29/23 History 4 Elective abortions Hx Para Spontaneous abortions Hx # Term Pregnancies Ectopic pregnancies Hx # Pregnancies Multiple births # of living children 4 Past Pregnancies Del. Date Name GA/Weeks Outcome Route Bth Weight Gen Labor Lgth Anesthesia Del Locatn Provider FOB Unknown Syed 2006 Unknown [place] 2007 Unknown Aviana 2007 Unknown Joseph 2010 ROS Const Constitutional: Denies chills, fatigue or fever(s) GI GI: Denies abdominal pain or nausea : Reports sexual dysfunction (pain), vaginal pruritus (and burning.) and other (see HPI); Denies difficulty voiding, dysuria, hematuria, pelvic pain, urinary incontinence, vaginal discharge, vaginal dryness or vaginal odor Skin Skin/Breast: Denies rash Exam Const General: cooperative, healthy appearing, comfortable, no acute distress, well groomed and well hydrated Nutritional Appearance: well nourished Orientation: alert, awake and oriented x3 HENMT Head: normal to inspection and normocephalic Ears: hearing grossly normal bilaterally and external ears normal Nose: external nose normal Face and sinus: normal facial exam Eyes General: appearance normal, both eyes and all related structures Neck Neck: normal visual inspection, full ROM and no lymphadenopathy Chest Chest palpation inspection: normal inspection of the chest Resp Effort Inspection: normal respiratory effort, able to speak in complete sentences and symmetric chest movement GI Inspection: normal to inspection General: bladder normal to palpation External Female Exam: normal external appearance and normal appea (more content not included)... Normal [facility] Basophil percentageOrdered B y: Nign Hyman on 04-03-2023 Basophil percentage 0 SEEN /hpf 0-5 [facility] Bilirubin Test strip Ql (U)O rdered By: Ning Hyman on 04-03-2023 Bilirubin Ql (U) Negative Negative [facility] Ketones Test strip Ql (U)Ord ered By: Ning Hyman on 04-03-2023 Ketones Ql (U) Negative Negative [facility] Mucus LM Ql (Urine sed)Order ed By: Ning Hyman on 04-03-2023 Mucus Ql (Urine sed) 0 SEEN /hpf [facility] Nitrite Test strip Ql (U)Ord ered By: Ning Hyman on 04-03-2023 Nitrite Ql (U) Negative Negative [facility] No Panel InformationOrdered By: Ning Hyman on 04-03-2023 Urine RBC 0 SEEN /hpf 0-5 [facility] Protein Test strip Ql (U)Ord ered By: Ning Hyman on 04-03-2023 Protein Ql (U) Negative Negative [facility] Squamous epithelial cells de tection in urine sediment by light microscopyOrdered By: Ning Hyman on 04-03-2023 Epithelial cells.squamous LM Ql (Urine sed) 0-5 SEEN /hpf 5-10 [facility] Urine blood detectionOrdered By: Ning Hyman on 04-03-2023 RBC Ql (U) Negative Negative [facility] Urine clarityOrdered By: Michael Hyman on 04-03-2023 Clarity (U) Clear Clear [facility] Urine color determinationOrd ered By: Ning Hyman on 04-03-2023 Color (U) Yellow Yellow [facility] Urine glucose detectionOrder ed By: Ning Hyman on 04-03-2023 Glucose Ql (U) Normal mg/dl Normal [facility] Urine leukocyte esterase det ection by dipstickOrdered By: Ning Hyman on 04-03-2023 Leukocyte esterase Test strip Ql (U) Negative Negative [facility] Urine pHOrdered By: Arminda Hyman on 04-03-2023 pH (U) 6.5 [pH] 5.0 - 8.0 [facility] Urine sediment bacteria coun t by microscopy (number/high power field)Ordered By: Ning Hyman on 04-03-2023 Bacteria LM.HPF (Urine sed) [#/Area] 0 /[HPF] None Seen [facility] Urine specific gravity measu rementOrdered By: Ning Hyman on 04-03-2023 Specific gravity (U) [Rel density] 1.010 1.002-1.030 [facility] Urine urobilinogen measureme ntOrdered By: Ning Hyman on 04-03-2023 Urobilinogen Ql (U) Normal mg/dl Normal [facility] Gram stain for investigation of transfusion reactionOrdered By: Gerri Bautista on 09-16-2022 Microscopic observation Gram stain Nom (Unsp spec) [facility] Thin prep Papanicolaou smear with manual screeningOrdered By: Gerri Bautista on 09-16-2022 Thin prep Papanicolaou smear with manual screening Normal genital gladys isolated [facility] Basophil percentageOrdered B y: Dr. Hyman on 06-07-2022 Basophil percentage 5-10 SEEN /hpf 0-5 [facility] Bilirubin Test strip Ql (U)O rdered By: Dr. Hyman on 06-07-2022 Bilirubin Ql (U) Negative Negative [facility] Ketones Test strip Ql (U)Ord ered By: Dr. Hyman on 06-07-2022 Ketones Ql (U) 5 mg/dl Negative [facility] Mucus LM Ql (Urine sed)Order ed By: Dr. Hyman on 06-07-2022 Mucus Ql (Urine sed) RARE /hpf [facility] Nitrite Test strip Ql (U)Ord ered By: Dr. Hyman on 06-07-2022 Nitrite Ql (U) Negative Negative [facility] Protein Test strip Ql (U)Ord ered By: Dr. Hyman on 06-07-2022 Protein Ql (U) Negative Negative [facility] Squamous epithelial cells de tection in urine sediment by light microscopyOrdered By: Dr. Hyman on 06-07-2022 Epithelial cells.squamous LM Ql (Urine sed) 0-5 SEEN /hpf 5-10 [facility] Urine blood detectionOrdered By: Dr. Hyman on 06-07-2022 RBC Ql (U) Negative Negative [facility] RBC Ql (U) 0-5 SEEN /hpf 0-5 [facility] Urine clarityOrdered By: Dr. Hyman on 06-07-2022 Clarity (U) Clear Clear [facility] Urine color determinationOrd ered By: Dr. Hyman on 06-07-2022 Color (U) Yellow Yellow [facility] Urine glucose detectionOrder ed By: Dr. Hyman on 06-07-2022 Glucose Ql (U) Normal mg/dl Normal [facility] Urine leukocyte esterase det ection by dipstickOrdered By: Dr. Hyman on 06-07-2022 Leukocyte esterase Test strip Ql (U) 100 /ul Negative [facility] Urine pHOrdered By: Dr. Magen gomez on 06-07-2022 pH (U) 6.5 [pH] 5.0 - 8.0 [facility] Urine sediment bacteria coun t by microscopy (number/high power field)Ordered By: Dr. Hyman on 06-07-2022 Bacteria LM.HPF (Urine sed) [#/Area] 1 /[HPF] None Seen [facility] Urine specific gravity measu rementOrdered By: Dr. Hyman on 06-07-2022 Specific gravity (U) [Rel density] 1.015 1.002-1.030 [facility] Urobilinogen Auto test strip Ql (U)Ordered By: Dr. Hyman on 06-07-2022 Urobilinogen Ql (U) Normal mg/dl Normal [facility] Culture, urineOrdered By: Dr Booker Hyman on 04-15-2022 Bacteria identified Cx Nom (U) Culture exhibits no growth. [facility] Basophil percentageOrdered B y: Dr. Hyman on 04-12-2022 Basophil percentage 0-5 SEEN /hpf 0-5 [facility] Bilirubin Test strip Ql (U)O rdered By: Dr. Hyman on 04-12-2022 Bilirubin Ql (U) Negative Negative [facility] Ketones Test strip Ql (U)Ord ered By: Dr. Hyman on 04-12-2022 Ketones Ql (U) 5 mg/dl Negative [facility] Mucus LM Ql (Urine sed)Order ed By: Dr. Hyman on 04-12-2022 Mucus Ql (Urine sed) 0 SEEN /hpf [facility] Nitrite Test strip Ql (U)Ord ered By: Dr. Hyman on 04-12-2022 Nitrite Ql (U) Negative Negative [facility] Protein Test strip Ql (U)Ord ered By: Dr. Hyman on 04-12-2022 Protein Ql (U) Negative Negative [facility] Squamous epithelial cells de tection in urine sediment by light microscopyOrdered By: Dr. Hyman on 04-12-2022 Epithelial cells.squamous LM Ql (Urine sed) 0-5 SEEN /hpf 5-10 [facility] Urine blood detectionOrdered By: Dr. Hyman on 04-12-2022 RBC Ql (U) Negative Negative [facility] RBC Ql (U) 0 SEEN /hpf 0-5 [facility] Urine clarityOrdered By: Dr. Hyman on 04-12-2022 Clarity (U) Sl. Cloudy Clear [facility] Urine color determinationOrd ered By: Dr. Hyman on 04-12-2022 Color (U) Yellow Yellow [facility] Urine glucose detectionOrder ed By: Dr. Hyman on 04-12-2022 Glucose Ql (U) Normal mg/dl Normal [facility] Urine leukocyte esterase det ection by dipstickOrdered By: Dr. Hyman on 04-12-2022 Leukocyte esterase Test strip Ql (U) Negative Negative [facility] Urine pHOrdered By: Dr. Magen gomez on 04-12-2022 pH (U) 6.5 [pH] 5.0 - 8.0 [facility] Urine sediment bacteria coun t by microscopy (number/high power field)Ordered By: Dr. Hyman on 04-12-2022 Bacteria LM.HPF (Urine sed) [#/Area] 2 /[HPF] None Seen [facility] Urine specific gravity measu rementOrdered By: Dr. Hyman on 04-12-2022 Specific gravity (U) [Rel density] 1.015 1.002-1.030 [facility] Urobilinogen Auto test strip Ql (U)Ordered By: Dr. Hyman on 04-12-2022 Urobilinogen Ql (U) Normal mg/dl Normal [facility] Absolute lymphocyte counton 12-13-2021 Lymphocytes Auto (Unsp spec) [#/Vol] 2.66 10*3/uL 0.83-4.51 [facility] Work Phone: Absolute reticulocyte counto n 12-13-2021 Reticulocytes (Bld) [#/Vol] 0.00 10*3/uL 0-5 [facility] Work Phone: Basophil percentageon 2021 Basophil percentage 3.0 mg/dL 2.5-4.9 [facility] Work Phone: Bilirubin [Mass/Vol] 0.70 mg/dL 0.20-1.00 [facility] Work Phone: Comment on above: For patients on eltr ombopag therapy, use of Dimension [place] TBIL is not recommended. Chloride [Moles/Vol] 109 mmol/L 98-107 [facility] Work Phone: Cholesterol [Mass/Vol] 147 mg/dL <200 [facility] Work Phone: Comment on above: <200 mg/dL Desirable 200-240 mg/dL Borderline >240 mg/dL High Risk Glucose [Mass/Vol] 86 mg/dL 74-106 [facility] Work Phone: Neutrophils (Bld) [#/Vol] 3.4 10*3/uL 2.0-7.7 [facility] Work Phone: [phone] Potassium [Moles/Vol] 4.0 mmol/L 3.5-5.1 [facility] Work Phone: Protein [Mass/Vol] 7.1 g/dL 6.4-8.2 [facility] Work Phone: Sodium [Moles/Vol] 138 mmol/L 136-145 [facility] Work Phone: Triglyceride [Mass/Vol] 113 mg/dL <199 [facility] Work Phone: Comment on above: The drugs N-Acetylcy steine and Metamizole may falsely depress this assay.Serum Triglycerides Reference Interval Normal <150 mg/dL Borderline high 150 - 199 mg/dL High 200 - 499 mg/dL Very High > or = 500 mg/dL WBC (Bld) [#/Vol] 6.9 10*3/uL 4.4-11.0 [facility] Work Phone: Bilirubin Test strip Ql (U)o n 12-13-2021 Bilirubin Ql (U) Negative Negative [facility] Work Phone: Blood erythrocytes count (nu mber/volume)on 12-13-2021 RBC (Bld) [#/Vol] 4.50 10*6/uL 4.2-5.4 [facility] Work Phone: Blood hemoglobin measurement (mass/volume)on 12-13-2021 Hemoglobin (Bld) [Mass/Vol] 13.0 g/dL 12.0-15.0 [facility] Work Phone: [phone] Blood platelet mean volumeon 12-13-2021 Platelet mean volume (Bld) [Entitic vol] 9.8 fL 6.2-12.0 [facility] Work Phone: [phone] Determination of erythrocyte mean corpuscular volume (MCV)on 12-13-2021 MCV (RBC) [Entitic vol] 88.0 fL 81-99 [facility] Work Phone: [phone] Direct bilirubinon Bilirubin.direct [Mass/Vol] 0.16 mg/dL 0.00-0.30 [facility] Work Phone: [phone] Hematocrit Auto (Bld) [Volum e fraction]on 12-13-2021 Hematocrit (Bld) [Volume fraction] 39.6 % 37-47 [facility] Work Phone: [phone] Ketones Test strip Ql (U)on 12-13-2021 Ketones Ql (U) Negative Negative [facility] Work Phone: [phone] Laboratory - Chemistry and C hemistry - challengeon 12-13-2021 ALP [Catalytic activity/Vol] 77 U/L 45-117 [facility] Work Phone: [phone] ALT [Catalytic activity/Vol] 22 U/L 13-56 [facility] [facility] Work Phone: [phone] Cholesterol.total/Choles terol in HDL [Mass ratio] 2.60 {ratio} [facility] Work Phone: [phone] CO2 [Moles/Vol] 25.0 mmol/L 21.0-32.0 [facility] Work Phone: [phone] Globulin (S) [Mass/Vol] 3.7 g/dL 2.2-4.2 [facility] Work Phone: [phone] Urea nitrogen/Creatinine [Mass ratio] 14.2 mg/mg - [facility] Work Phone: Free T4 [Mass/Vol] 0.98 ng/dL 0.76-1.46 [facility] Work Phone: Laboratory - Hematology and Cell countson 12-13-2021 Erythrocyte distribution width (RBC) [Entitic vol] 41.9 fL 35.1-43.9 [facility] Work Phone: [phone] Erythrocyte distribution width (RBC) [Ratio] 13.1 % 11.6-14.6 [facility] Work Phone: [phone] MCH (RBC) [Entitic mass] 28.9 pg 27.0-32.0 [facility] Work Phone: Nucleated RBC/100 WBC (Bld) [Ratio] 0 % 0-5 [facility] Work Phone: MCHC Auto (RBC) [Mass/Vol]on 12-13-2021 MCHC (RBC) [Mass/Vol] 32.8 g/dL 32-36 [facility] Work Phone: Nitrite Test strip Ql (U)on 12-13-2021 Nitrite Ql (U) Positive Negative [facility] Work Phone: No Panel Informationon 12-13 Estimated GFR (MDRD) Amer 108 mL/min >60 [facility] Work Phone: Comment on above: GFR Calc Estimated GFR (MDRD) Non-Af Amer 89 mL/min >60 [facility] Work Phone: Comment on above: Non- GFR Calc Thyroid Stimulating Hormone (TSH) 1.60 uIU/mL 0.358-3.74 [facility] Work Phone: Platelets bldon 12-13-2021 Platelets (Bld) [#/Vol] 278 10*3/uL 150-450 [facility] Work Phone: Protein Test strip Ql (U)on 12-13-2021 Protein Ql (U) 15 mg/dl Negative [facility] Work Phone: Segmented neutrophils/100 WB C Auto (Bld)on 12-13-2021 Segmented neutrophils/100 WBC (Bld) 49.5 % 47-70 [facility] Work Phone: Serum or plasma albumin carrie urement (mass/volume)on 12-13-2021 Albumin [Mass/Vol] 3.4 g/dL 3.2-5.0 [facility] Work Phone: Serum or plasma albumin/glob ulin mass ratioon 12-13-2021 Albumin/Globulin [Mass ratio] 0.9 {ratio} 0.9-2.4 [facility] Work Phone: Serum or plasma calcium carrie urement (mass/volume)on 12-13-2021 Calcium [Mass/Vol] 8.9 mg/dL 8.5-10.1 [facility] Work Phone: Serum or plasma cholesterol in HDL measurement (mass/volume)on 12-13-2021 Cholesterol in HDL [Mass/Vol] 56 mg/dL >40 [facility] Work Phone: Comment on above: The drugs N-Acetylcy steine and Metamizole may falsely depress this assay. Reference Range HDL <40 mg/dL Low HDL Cholesterol HDL >or= 60 mg/dL High HDL Cholesterol Serum or plasma cholesterol in VLDL measurement (mass/volume)on 12-13-2021 Cholesterol in VLDL [Mass/Vol] 23 mg/dL 5-40 [facility] Work Phone: Serum or plasma creatinine m easurement (mass/volume)on 12-13-2021 Creatinine [Mass/Vol] 0.78 mg/dL 0.55-1.02 [facility] Work Phone: Comment on above: The validity of the calculated GFR & GFRAA in patients over 70 years has not been determined. Clinical correlation is essential. Serum or plasma low density lipoprotein (LDL) cholesterol measurement (mass/volume)on 12-13-2021 Cholesterol in LDL [Mass/Vol] 68 mg/dL 0-130 [facility] Work Phone: Serum or plasma urea nitroge n measurement (mass/volume)on 12-13-2021 Urea nitrogen [Mass/Vol] 11 mg/dL 7-18 [facility] Work Phone: Serum or plasma uric acid me asurement (mass/volume)on 12-13-2021 Urate [Mass/Vol] 3.6 mg/dL 2.6-6.0 [facility] Work Phone: Comment on above: The drugs N-Acetylcy steine and Metamizole may falsely depress this assay. Thin prep Papanicolaou smear with manual screeningon 12-13-2021 Thin prep Papanicolaou smear with manual screening 13 U/L 15-37 [facility] Work Phone: Thin prep Papanicolaou smear with manual screening 4 5-15 [facility] Work Phone: Thin prep Papanicolaou smear with manual screening 170 U/L 84-246 [facility] Work Phone: Urine blood detectionon 11-18 RBC Ql (U) Negative Negative [facility] Work Phone: Urine clarityon 12-13-2021 Clarity (U) Clear Clear [facility] Work Phone: Urine color determinationon 12-13-2021 Color (U) Straw Yellow [facility] Work Phone: Urine glucose detectionon Glucose Ql (U) Normal mg/dl Normal [facility] Work Phone: Urine leukocyte esterase det ection by dipstickon 12-13-2021 Leukocyte esterase Test strip Ql (U) 500 /ul Negative [facility] Work Phone: Urine pHon 12-13-2021 pH (U) 8.0 [pH] 5.0 - 8.0 [facility] Work Phone: Urine specific gravity measu rementon 12-13-2021 Specific gravity (U) [Rel density] 1.010 1.002-1.030 [facility] Work Phone: Urobilinogen Auto test strip Ql (U)on 12-13-2021 Urobilinogen Ql (U) Normal mg/dl Normal [facility] Work Phone: ELAINEOVon 04-18-2021 CNOV Office Visit (OBGWMA) DIVYA SULLIVAN ([id number]) 1985 F Date Time Provider Department 04/18/21 1:00 PM REYNA SAGASTUMEGRAFAL During your visit today, we recorded the following information about you: Blood pressure Weight Height Last Period 118/74 73 kg 1.626 m 04/01/21 Reyna Sagastume DO 04/18/2021 2:46 PM Signed SERVICE DATE: 04/18/2021 SERVICE TIME: 1:14 PM Subjective HPI: Divya Sullivan is a 35 year old female who presents for her annual well woman exam. Patient also presents today with concerns regarding vaginal burning and itching. She denies vaginal discharge. She reports that symptoms started in the beginning of March, and lasted off and on for 1 week. She reports that symptoms have not returned. She also reports that she had an episode of intermenstrual spotting last month. Patient reports that she has never had it before, and denies spotting since. Last Pap: 2019, NIL H/o Abnormal Paps: None Gardasil: Never completed Menses: regular LMP: Patient's last menstrual period was 04/01/2021 (exact date). Menarche: 14 yo control: s/p tubal ligation in 2020 Prior contraception: None Sexually active: 1 partner Concern for exposure to STDs: None History of STIs/PID: None Vaginal discharge: None Itching: None Dyspareunia: None Dysuria, urinary frequency or urgency: None Bladder control: None Bowel Concerns: None History of anxiety disorder: None FMH of breast/ovarian/uteri ne/cervical/colon cancer: paternal aunt with breast cancer (dx 50 yo), paternal cousin with breast cancer Genetic testing: None History reviewed. No pertinent past medical history. PAST SURGICAL HISTORY Procedure Laterality Date - EAR SURGERY HX Right 2000 - LIGATE FALLOPIAN TUBE N/A 08/10/2020 History reviewed. No pertinent family history. Social History Tobacco Use - Smoking status: Never Smoker - Smokeless tobacco: Never Used Substance Use Topics - Alcohol use: Yes Comment: social - Drug use: Never Current Outpatient Medications Medication Sig - Docosahexanoic Acid-Eicosapent (FISH OIL) 120-180 mg capsule Take 2 g by mouth once daily. - BIOTIN 10,000 TABLET - B-complex with vitamin C (VITAMIN B COMPLEX-C ORAL) Take by mouth. - Cranberry 400 mg cap Take by mouth. - Multivitamin capsule Take 1 capsule by mouth once daily. - ibuprofen (MOTRIN) 600 mg tablet Take 1 tablet by mouth every 6 hours as needed for pain. - acetaminophen (TYLENOL EXTRA STRENGTH) 500 mg tablet Take 2 tablets by mouth every 6 hours as needed for pain. - oxyCODONE IR (ROXICODONE) 5 mg immediate release tablet Take 1 tablet by mouth every 6 hours as needed for pain. No current facility-administere d medications for this visit. ALLERGIES No Known Allergies Immunization History Administered Date(s) Administered Tdap (Age 7+) 12/20/2009 Review of Systems Constitutional: Negative for fatigue, fever and unexpected weight change. HENT: Negative for congestion, sinus pressure and sneezing. Respiratory: Negative for cough, shortness of breath and wheezing. Cardiovascular: Negative for chest pain. Gastrointestinal: Negative for abdominal distention, abdominal pain, blood in stool, constipation, diarrhea, nausea and vomiting. Genitourinary: Negative for dyspareunia, dysuria, flank pain, frequency, menstrual problem, pelvic pain, urgency, vaginal bleeding, vaginal discharge and vaginal pain. Musculoskeletal: Negative for arthralgias, joint swelling and myalgias. Skin: Negative for rash. Neurological: Negative for dizziness, weakness and headaches. Psychiatric/Behavior al: Negative for behavioral problems and suicidal ideas. I have confirmed and edited as necessary, the PFSH and ROS obtained by others. Objective PHYSICAL EXAM: BP 118/74 Ht 5' 4 (1.63m) Wt 161 lb (73.0kg) LMP 04/01/2021 BMI 27.62 kg/(m2). Physical Exam Constitutional: General: She is not in acute distress. Appearance: Normal appearance. Genitourinary: Vulva normal. No lesions in the vagina. Right Labia: No rash, tenderness or lesions. Left Labia: No tenderness, lesions or rash. No labial fusion noted. No vaginal tenderness or ulceration. Right Adnexa: not tender and no mass present. Left Adnexa: not tender and no mass present. No cervical discharge, lesion or polyp. Uterus is not enlarged or tender. No uterine mass detected. No urethral prolapse present. Bladder is not tender. Breasts: Breasts are symmetrical. Right: No mass, nipple discharge, skin change or tenderness. Left: No mass, nipple discharge, skin change or tenderness. HENT: Head: Normocephalic and atraumatic. Cardiovascular: Rate and Rhythm: Normal rate and regular rhythm. Heart sounds: No murmur heard. Pulmonary: Effort: Pulmonary effort is normal. No respiratory distress. Breath sounds: Normal breath sounds. (more content not included)... Normal [facility] FUNGAL SMEARon 04-18-2021 FUNGAL SMEAR FUNGAL SMEAR: No fungus seen Normal [facility] Comment on above: Performed By: #### F [id number] ####[facility]IA [id number] [place] [address] [place] HPV W/GENOTYPE THIN PREPon 0 04-18-2021 HPV 16 Ag Ql (Unsp spec) Negative Normal Neg ative for HPV DNA high risk type 16 by PCR [facility] Comment on above: Order Comment: Speci men Type: FLUID SAMPLE Ordering Facility: [facility] Address: [address] [place] [address] Performed By: #### H PVHRT #### [facility] CLIA [id number] [address] [place] [address] [place] HPV 18 Ag Ql (Unsp spec) Negative Normal Neg ative for HPV DNA high risk type 18 by PCR [facility] Comment on above: Order Comment: Speci men Type: FLUID SAMPLE Ordering Facility: [facility] Address: [address] [place] [address] Performed By: #### H PVHRT #### [facility] CLIA [id number] [address] [place] [address] [place] HPV 31+33+35+39+45+51+52+56+ 58+59+66+68 DNA GLEN+probe Ql (Cvx) Negative for HPV DNA high risk types: 31,33,35,39,45,51,52 ,56,58,59,66,68 by PCR. Normal Negative for HPV DNA high risk types: 31,33,35,39,45 ,51,52,56,58,5 9,66,68 by PCR. [facility] Comment on above: Order Comment: Speci men Type: FLUID SAMPLE Ordering Facility: [facility] Address: [address] [place] [address] Performed By: #### H PVHRT #### [facility] CLIA [id number] [address] [place] [address] PAP FLUID CERVICAL SCREENING on 04-18-2021 CASE REPORT Normal [facility] Comment on above: Order Comment: Speci men Type: FLUID SAMPLEOrdering Facility: [facility] Address: [address] [place] [address] Result Comment: Gyne cologic Cytology Report Case: [id number] Authorizing Provider: Reyna Sagastume DO Collected: 04/18/2021 01:35 PM Ordering Location: [facility] Received: 04/19/2021 08:36 AM General Obstetrics and Gynecology First Screen: Kelly Garvin Specimen: PAP MANUAL SCREENING, CERVICAL SCREENING FLUID Performed By: #### L [id number] ####[facility]IA [id number] [address] [place] CLINICAL HISTORY ROUTINE EXAM Normal [facility] Comment on above: Order Comment: Speci men Type: FLUID SAMPLEOrdering Facility: [facility] Address: [address] [place] [address] Performed By: #### L [id number] ####[facility]IA [id number] [address] [place] CYTOLOGY INTERPRETATION PAP Normal [facility] Comment on above: Order Comment: Speci men Type: FLUID SAMPLEOrdering Facility: [facility] Address: [address] [place] [address] Result Comment: Nega tive for Intraepithelial lesion or malignancy. Performed By: #### L [id number] ####[facility]ORY[facility]IA [id number] [address] FINAL DIAGNOSIS Normal [facility] Comment on above: Order Comment: Speci men Type: FLUID SAMPLEOrdering Facility: [facility] Address: [address] [place] [address] Result Comment: A - CERVICAL SCREENING FLUID Satisfactory for interpretation, Transformation zone present Negative for Intraepithelial lesion or malignancy. Performed By: #### L [id number] ####[facility] [id number] [address] FINAL PERFORMING LAB Normal [facility] Comment on above: Order Comment: Speci men Type: FLUID SAMPLEOrdering Facility: [facility] Address: [address] [place] [address] Result Comment: Tech nical component, header dock screening performed at [facility], [address] [place] [address] CLIA# [id number] Diagnostic interpretation performed at [facility], [address] [place] [address] CLIA# [id number] [place] Supervisor: Oswald Trimble M.D. Performed By: #### L [id number] ####[facility]ORYCLIA [id number] [address] HPV REQUESTED? Yes, automatic HPV patients over 30 Normal [facility] Comment on above: Order Comment: Speci men Type: FLUID SAMPLEOrdering Facility: [facility] Address: [address] [place] [address] Performed By: #### L [id number] ####[facility]ORYCLIA [id number] [address] LMP N/A Normal [facility] Comment on above: Order Comment: Speci men Type: FLUID SAMPLEOrdering Facility: [facility] Address: [address] [place] [address] Performed By: #### L [id number] ####[facility]ORYCLIA [id number] [address] PAP DISCLAIMER COMMENT The Pap Smear is a screening test for cervical cancer. False negative results occur with all screening tests, emphasizing the need for rescreening at recommended intervals, and clinical correlation. Normal [facility] Comment on above: Order Comment: Speci men Type: FLUID SAMPLEOrdering Facility: [facility] Address: [address] [place] [address] Performed By: #### L [id number] ####[facility]ORYCLIA [id number] [address] CNOVon 08-29-2020 CNOV Office Visit (OBGWMA) DIVYA SULLIVAN ([id number]) 1985 F Date Time Provider Department 08/29/20 9:15 AM ROLY DAVILA OBGWMA During your visit today, we recorded the following information about you: Blood pressure Weight Height 112/68 69.9 kg 1.626 m Roly Davila MD 08/29/2020 9:51 AM Signed Divya Cooperbill is a 35 year old year who presents for her post op exam after her tubal. The patient's concerns are getting back to usual activities. TUBAL: Bilateral tubal fulguration POST OP COURSE:NOT COMPLICATED} BLADDER: No burning with urination, blood in urine or incontinence.,No change in vaginal dischage, burning, dryness or itching. BOWEL: No blood in stool, pain with BM, tarry stool, persistent diarrhea or constipation Medical, Surgical, Family and Social histories reviewed. BP 112/68 Ht 5' 4 (1.63m) Wt 154 lb (69.9kg) LMP 08/09/2020 BMI 26.42 kg/(m2). EXAM: pleasant,well developed,well nourished,white female in no apparent distress ABDOMEN: Benign, Soft, non-tender, no hernia, port sites healing well PELVIC:deferred BIMANUAL: deferred NEURO: alert and oriented x3,exam grossly non-focal EXTREMITIES: Warm,No cyanosis, clubbing,No edema,nontender ASSESSMENT: Status post tubal, Patient is doing well. PLAN: Return to Clinic for annual or as needed. Roly Davila MD Total time in direct patient contact = 15 min. Greater than 50% of the time was spent in counseling and/or coordination of care. Roly Davila MD 08/29/2020 9:51 AM Signed - Please call the office before going to the hospital. - If you are , go to the ER at the hospital main campus. Do not go to the outlying ER?s ([place], [place] or [place]). - If you need to go to an ER and cannot or will not go downtown, please use one of [facility]?s ER?s (not [facility], [place] or [facility]). Referring Provider: ROLY DAVILA [[id number]] Allergies As of Date: 08/29/2020 (No Known Allergies) Date Reviewed: 08/29/2020 Reviewed by: Bryant Mike LPN - Fully Assessed Reason for Visit: Post Op [174] Primary Visit Diagnosis:Post-opera tive state [Z98.890] Prescriptions as of 08/29/2020 - ibuprofen (MOTRIN) 600 mg tablet Take 1 tablet by mouth every 6 hours as needed for pain. - acetaminophen (TYLENOL EXTRA STRENGTH) 500 mg tablet Take 2 tablets by mouth every 6 hours as needed for pain. - oxyCODONE IR (ROXICODONE) 5 mg immediate release tablet Take 1 tablet by mouth every 6 hours as needed for pain. - Multivitamin capsule Take 1 capsule by mouth once daily. Problem List As Of Date: 08/29/2020 (None) Other instructions from your clinician: - Please call the office before going to the hospital. - If you are , go to the ER at the [facility] main campus. Do not go to the outlying ER?s ([place], [place] or [place]). - If you need to go to an ER and cannot or will not go downtown, please use one of [facility]?s ER?s (not [facility], [place] or [facility]). Disposition: Return if symptoms worsen or fail to improve. Follow-up and Disposition History Recorded Encounter Status:Closed by ROLY DAVILA on 08/29/20 [facility] ANES POSTPROC EVALon 021 ANES POSTPROC EVAL HNO ID: [id number] Author: Jef Oden MD Service: Anesthesiology Author Type: Physician Type: Anesthesia Postprocedure Evaluation Filed: 08/14/2020 1:06 PM Note Text: POST ANESTHESIA EVALUATION NOTE : 1985 Procedure Summary Date: 08/10/20 Room / Location: NC OR / NC OR Anesthesia Start: 1122 Anesthesia Stop: 1230 Procedure: LAPAROSCOPIC LIGATION TUBAL (N/A ) Diagnosis: Admission for sterilization (Admission for sterilization [Z30.2]) Surgeons: Roly Davila MD Responsible Provider: Jef Oden MD Anesthesia Type: general ASA Status: 1 Anesthesia Type: general Last vitals Vitals Value Taken Time BP 108/75 08/10/20 1356 Temp 36 ?C (96.8 ?F) 08/10/20 1356 HR SpO2 53 08/10/20 1356 Resp 15 08/10/20 1356 SpO2 100 % 08/10/20 1356 Post Anesthesia Patient Status Patient Evaluation: PACU. PACU/ICU Patient Condition: stable. Anticipated Disposition: phase 2 then home. Neurological Status: aware and responsive. Pulmonary Status: breathing comfortably on room air Airway Control: returned to baseline unsupported. Cardiovascular Status: stable. Pain Management: clinically adequate Postoperative Hydration: acceptable. Intraoperative Events: no significant anesthesia events Post Operative Nausea/Vomiting Status: no significant post operative nausea or vomiting Anesthetic Observations: Recommendation: continue current plan of care. No complications documented. SIGNATURE: Jef Oden MD PATIENT NAME: Divya Sullivan DATE: August 14, 2020 TIME: 1:06 PM CSN: [id number] [facility] ANES PRE-OPon 08-10-2020 ANES PRE-OP HNO ID: [id number] Author: Jef Oden MD Service: Anesthesiology Author Type: Physician Type: Anesthesia Preprocedure Evaluation Filed: 08/10/2020 10:29 AM Note Text: ANESTHESIOLOGY DAY OF SURGERY NOTE : 1985 Procedure(s) (LRB): LAPAROSCOPIC LIGATION TUBAL (N/A) Surgeon(s): Roly Davila MD Estimated body mass index is 25.92 kg/m? as calculated from the following: Height as of this encounter: 162.6 cm (5' 4). Weight as of this encounter: 68.5 kg (151 lb). Most recent hematocrit and potassium results: No results found for this basename: HCT,HEMATOCRIT,K,POT ASSIUM Relevant Problems No relevant active problems I - PHYSICAL EVALUATION AIRWAY Patient intubated: No. Tracheostomy tube not present Mallampati: II. TM distance: >3 FB. Neck ROM: full ROM without neurological symptoms. Mouth opening: adequate. Short neck: no. Thick neck: no DENTAL Dental findings: teeth intact. Additional exam findings: no II - ANESTHESIA PLAN ASA Score: 1 Anesthetic Plan: general Airway type: ETT The patient is not a current smoker. NPO Status: adequate Monitoring plan: standard ASA. Postoperative analgesic plan: multimodal analgesia. Anesthetic Risks, Benefits, Alternatives, Personnel Discussed. Consent obtained from: patient.Patient / Surrogate agrees to blood products: blood products not planned Potential Anesthesia issues that may suggest increased risk of complications or contraindication to planned procedure: none. Vitals Value Taken Time BP 113/76 08/10/20 1020 Pulse 69 08/10/20 1020 Resp 18 08/10/20 1020 Temp 36.1 ?C (97 ?F) 08/10/20 1020 SpO2 99 % 08/10/20 1020 Facility-Administere d Medications as of 08/10/2020 Medication Dose Route Frequency - lidocaine 10 mg/mL (1 %) 1-2 mg injection (XYLOCAINE) 0.1-0.2 mL INTRADERMAL PRN - lactated ringers iv infusion 5-30 mL/hr INTRAVENOUS CONTINUOUS Outpatient Medications as of 08/10/2020 Medication Sig - Multivitamin capsule Take 1 capsule by mouth once daily. I have interviewed and examined the patient. I have reviewed the medical record and/or the pre-anesthesia evaluation, pertinent labs, and test results. This contains updated information obtained within 48 hours of Surgery/Procedure. SIGNATURE: Jef Oden MD PATIENT NAME: Divya Sullivan DATE: August 10, 2020 TIME: 10:29 AM CSN: [id number] Normal [facility] HISTORY PHYSICALon HISTORY PHYSICAL HNO ID: [id number] Author: Betsy Her APRN.CNP Service: Anesthesiology Author Type: Nurse Practitioner Type: HANDP Filed: 08/10/2020 11:03 AM Note Text: HISTORY AND PHYSICAL EXAMINATION SERVICE DATE: 08/10/2020 SERVICE TIME: 11:01 AM PRIMARY CARE PHYSICIAN: No primary care provider on file. Divya Sullivan 1985 [id number] REASON FOR VISIT: Divya Sullivan is a 35 year old female who is scheduled for....... Procedure(s): LAPAROSCOPIC LIGATION TUBAL (N/A) at the request of Dr. Roly Davila for Pre Procedure history and physical The patient has the following: There is no problem list on file for this patient. Subjective CHIEF COMPLAINT: Admission for sterilization HPI: Divya Sullivan is a 35 year old female that presents with above. She has a history of . She states her youngest child is 10 years old. She and her spouse has made a personal decision not to have anymore children. After discussion with the surgeon patient has agreed to surgical intervention. History reviewed. No pertinent past medical history. PAST SURGICAL HISTORY Procedure Laterality Date - EAR SURGERY HX Right 2001 History reviewed. No pertinent family history. SOCIAL HISTORY: Social History Tobacco Use - Smoking status: Never Smoker - Smokeless tobacco: Never Used Substance Use Topics - Alcohol use: Yes Comment: social - Drug use: Never Prior to Admission medications as of 08/10/20 1101 Medication Sig Last Dose Taking Multivitamin capsule Take 1 capsule by mouth once daily. 08/09/2020 at Unknown time Yes No medication comments found. ALLERGIES No Known Allergies REVIEW OF SYSTEMS: PAIN ASSESSMENT: Pain Pain Level: 0 Pain Assessment (RN/SUPERVISOR TRANSCRIBING OPERATORS): Assessment Intervention: Emotional Support/Reassurance Tool: Verbal (Numeric Rating or Visual Analog Scale) General: Denies fever, chills, and unexpected weight change. Neuro: Denies dizziness and headaches. Respiratory: No history of current cough or dyspnea, or pneumonia in the past 6 weeks. Cardiovascular: No history of angina, CHF, UT, cardiac surgery or stents. Denies chest pain or palpations. GI: Denies abd pain and N/V/D. : Denies dysuria. CHEMICAL EQUIPMENT CONTROLLER: Denies abnormal vaginal bleeding.SEE HPI Endocrine: No history of diabetes or thyroid disease Hematology: Denies history of bleeding or clotting disorder. Psych: Denies anxiety/depression. Musculoskeletal: Denies joint pain and swelling. Skin: Denies open sores and rashes. Objective PHYSICAL EXAM: VITALS: BP 113/76 Pulse 69 Temp (Src) 97 (Temporal) Resp 18 Ht 5' 4 (1.63m) Wt 151 lb (68.5kg) SpO2 99% LMP 08/09/2020 BMI 25.91 kg/(m2). O2 Therapy: Room Air General: NAD. Cooperative. Skin: Skin is warm, no rashes, and no open sores. HEENT: Normocephalic. PERRL, neck supple Cardiovascular: Normal S1 AND S2, no rubs, murmurs or gallops. No JVD. Pulse regular. Lungs: Normal breath sounds, no wheezes or crackles. Abdomen: Soft, non-tender, non-distended, +BS throughout Extremities: No edema. Neurological: Alert and oriented to person, place, and time. Pulses: radial/pedal pulses +2 Bilaterally CHEMICAL EQUIPMENT CONTROLLER: DEFER TO SURGEON, SEE HPI Diagnostic tests reviewed for today's visit: Lab Value Units Date High Low HB No results within date range. HCT No results within date range. WBC No results within date range. PLT No results within date range. NA No results within date range. K No results within date range. GLUC No results within date range. BUN No results within date range. CREAT No results within date range. PTSEC No results within date range. INR No results within date range. APTT No results within date range. ALT No results within date range. AST No results within date range. TBILI No results within date range. TSH No results within date range. Lab Value Units Date High Low HCGQT No results within date range. UHCG No results within date range. HCG, BODY* No results within date range. Lab Value Units Date High Low ABORHD No results within date range. ABSCREEN No results within date range. No results found for: HBA1C No new labs There is no known pertinent medical condition which may affect curtis-operative course PLAN Procedure Diagnosis: Admission for sterilization [Z30.2] Planned Procedure: Procedure(s): LAPAROSCOPIC LIGATION TUBAL (N/A) Planned Anesthetic: General SIGNATURE: Betsy Her APRN.BROKERAGE BRANCH MANAGER PATIENT NAME: Divya Sullivan DATE: August 10, 2020 TIME: 11:01 AM PAGER/CONTACT #: Claudy [facility] OPERATIVE NOon 08-10-2020 OPERATIVE NO HNO ID: [id number] Author: Virgie Daigle DO Service: Gynecology Author Type: Resident Type: Operative Report Filed: 08/10/2020 12:59 PM Note Text: Attestation signed by Roly Davila MD at 08/10/2020 3:03 PM I was present for and supervised/performed the entire surgical procedure. Roly Davila MD CHEMICAL EQUIPMENT CONTROLLER OPERATIVE/PROCEDURE REPORT LOG ID: [id number] Surgery/Procedure Date: 08/10/2020 Incision/Procedure Start Time: 11:48 AM Incision Close/Procedure End Time: 12:14 PM Surgeon(s)/Procedura list(s) and Director Of Retail Analytics(s): Surgeon(s) and Role: * Roly Davila MD - Primary Informed Consent: Informed Consent obtained and on the chart Procedure: Laparoscopic bilateral tubal ligation Pre-Op/Pre-Procedure Diagnosis: desires sterility Post-Op/Post-Procedu re Diagnosis: Same as pre-op diagnosis Antibiotic: None Procedure Details: Patient was taken to the operating room where the sign-in and time out were completed. General anesthesia was induced and found to be adequate. Once anesthesia was found to be adequate her arms were extended to the side, she was placed in dorsal lithotomy position her legs were placed in Yellowfin stirrups with careful attention not to hyperflex or hyperextend the knees or hips. SCDs were placed and turned on for DVT prophylaxis. Exam under anesthesia was performed. Patient was prepped and draped in the usual fashion. A Enriquez catheter was placed in the urinary bladder under sterile conditions A weighted speculum was placed in the patient's vagina with clear visualization of the cervix. Cervix was grasped with a SuperSport manipulator and left in place for the remainder of the case. Attention was turned to the abdomen with clean sterile gloves. Prior to making the incision the area was injected with 0.25% Marcaine plain. A 5 mm intraumbilical incision was made with the knife and using a direct entry approach the 5 mm trochar was placed into the peritoneal cavity. The abdomen was insufflated with CO2 gas to 15mmHg. An additional 5mm post was place suprapubically. Kleppinger was introduced into the abdominal cavity. Approximately 3cm from the cornua, a 3 cm segment of the tube was cauterized using bipolar cauterization on the right side and then the left. Pelvis was noted to be hemostatic. All instruments were removed from the abdomen and pneumoperitoneum was released. Incisions were closed with 4-0 Vicryl rapide. Findings: Uterus: Normal Right Ovary: Normal Left Ovary: Normal Right Fallopian Tube: Normal Left Fallopian Tube: Normal Posterior cul-de-sac: Normal IV Fluids: 1400 Urine Output: 450 mL Estimated Blood Loss: < 10 mL Specimens: none Implantable Devices: None Drains: None Complications: None A digital sweep of the vaginal canal was performed by the Resident and it was ascertained that no instruments or other foreign bodies are retained within the cavity. Sponge, lap, and needle counts were correct times two and the patient was taken to the recovery room with stable vital signs after tolerating the procedure well. Resident performed the procedure, under direct supervision and the remainder of the procedure was performed by the primary surgeon/proceduralis t with assistance. SIGNATURE: Virgie Daigle DO PATIENT NAME: Divya Sullivan DATE: August 10, 2020 TIME: 12:48 PM PAGER/CONTACT #: [phone] Normal [facility] PreOp/PreProc COVIDon 2020 SARS-CoV-2 (COVID-19) RNA GLEN+probe Ql (Unsp spec) UPPER RESPIRATORY TRACT SWAB Normal [facility] Comment on above: Performed By: #### P OCOVD #### [place] [address] [place] [address] SARS-CoV-2 (COVID-19) RNA GLEN+probe Ql (Unsp spec) Negative for COVID19 (SARS CoV2) by RT-PCR or equivalent method. Normal Negative for COVID19 (SARS CoV2) by RT-PCR or equivalent method. [facility] Comment on above: Result Comment: This test was developed and its performance characteristics determined by [facility]'s [facility] [place]. This test has been authorized by FDA under an Emergency Use Authorization (EUA). This test has been validated in accordance with the FDA's Guidance Document Policy for Diagnostics Testing in Laboratories Certified to Perform High Complexity Testing under CLIA prior to Emergency use Authorization for Coronavirus Disease 2019 during the Public Health Emergency issued on April 17, 2019. Test performed by [facility], [facility] [place], [facility] [place], [place] [address]. Performed By: #### P OCOVD #### [place] [address] Yvette 08-01-2020 BALA Telephone (AGOBGRN) DIVYA SULLIVAN ([id number]) 1985 F Date Time Provider Department 08/01/20 ROLY DAVILA During your visit today, we recorded the following information about you: Jazmyne John 08/01/2020 9:48 AM Signed Pt called and stated that her INS will not cover a tubal excision at 100 percent she said she received an estimate from [facility] and she would owe $3000.00. pt stated her ins told her they would cover a tubal ligation. She wanted to know if the surgery could be changed to that and if not she would like to postpone to make payment arraignments. Roly Davila MD 08/01/2020 11:25 AM Signed We can do a tubal ligation, no problem. MAD Allergies As of Date: 08/01/2020 (No Known Allergies) Date Reviewed: 05/30/2020 Reviewed by: Viktoria ZeeEmbossed Or Impressed Lettering Painter) Deepthi - Fully Assessed Reason for Visit: Patient Update [1234] Problem List As Of Date: 08/01/2020 (None) Encounter Status:Closed by ROLY DAVILA on 08/01/20 [facility] CNPYolanda 06-06-2020 CNPN Telephone (AGOBGRN) DIVYA SULLIVAN ([id number]) 1985 F Date Time Provider Department 06/06/20 ROLY DAVILA During your visit today, we recorded the following information about you: Jazmyne Lopez 06/06/2020 2:48 PM Signed Can you please add covid testing for this pt she is having a tubal on 08/10/20 Roly Davila MD 06/07/2020 8:12 AM Signed COVID testing ordered. MAD Allergies As of Date: 06/06/2020 (No Known Allergies) Date Reviewed: 05/30/2020 Reviewed by: Viktoria ([place]) Deepthi - Fully Assessed Reason for Visit: Orders [681] Primary Visit Diagnosis:Encounter for sterilization [Z30.2] Order(s):PRE-PROCEDU RE AND PRE-OPERATIVE COVID [SQPOCOVD] Order #: [id number] FUTURE Problem List As Of Date: 06/06/2020 (None) Encounter Status:Closed by ROLY DAVILA MD on 06/07/20 [facility] CNOVon 05-30-2020 CNOV Office Visit (OBGWMA) LAURIEDIVYA ([id number]) 1985 F Date Time Provider Department 05/30/20 3:00 PM ROLY DAVILA OBGWMA During your visit today, we recorded the following information about you: Weight Last Period 77.1 kg 05/20/20 Roly Davila MD 05/30/2020 3:49 PM Signed Divya Sullivan is a 34 year old female who presents with a chief complaint of Consult (discuss tubal) SUBJECTIVE Here to discuss permanent sterilization. Youngest child is now 10. She and are definite about not having anymore children. is willing to have vas, but she prefers that she be the one to be sterilized. Laparoscopic tubal excision discussed in detail. Vas discussed in detail. R/B/A discussed. Consent form signed. Obstetric History T0 L4 SAB0 TAB0 Ectopic0 Multiple0 Live Births0 OBJECTIVE ALLERGIES No Known Allergies No current outpatient medications on file. No current facility-administere d medications for this visit. Review of Systems Constitutional: Negative for fatigue and unintentional weight changes Gastrointestinal: Negative for diarrhea, bloody stool, nausea/vomiting and constipation Genitourinary: See HPI Medical, Surgical, Family and Social histories reviewed. Physical Exam Wt 170 lb (77.1kg) LMP 05/20/2020 General: No Acute Distress, Well nourished, Well developed, No obvious deformities and Alert/Oriented x 3 Mood/Affect: Normal ASS/PLAN: - Sterilization - Schedule tubal excision. MAD Total time in direct patient contact = 20 min. Greater than 50% of the time was spent in counseling and/or coordination of care. Roly Davila MD 05/30/2020 3:45 PM Signed - Please call the office before going to the hospital. - If you are , go to the ER at the [facility]. Do not go to the outlying ER?s ([place], [place] or [place]). - If you need to go to an ER and cannot or will not go downtown, please use one of [facility]?s ER?s (not [facility], [facility] or [facility]). Referring Provider: SELF [200] Allergies As of Date: 05/30/2020 (No Known Allergies) Date Reviewed: 05/30/2020 Reviewed by: Viktoria ([facility]) Deepthi - Fully Assessed Reason for Visit: Consult [173] Cmt: discuss tubal Primary Visit Diagnosis:Encounter for sterilization [Z30.2] Problem List As Of Date: 05/30/2020 (None) Other instructions from your clinician: - Please call the office before going to the hospital. - If you are , go to the ER at the [facility]. Do not go to the outlying ER?s ([place], [place] or [place]). - If you need to go to an ER and cannot or will not go downtown, please use one of [facility]?s ER?s (not [facility], [facility] or [facility]). Disposition: Return if symptoms worsen or fail to improve. Follow-up and Disposition History Recorded Encounter Status:Closed by ROLY DAVILA MD on 05/30/20 Normal [facility] Culture, urine Bacteria identified Cx Nom (U) Staphylococcus hominis hominis [facility] Work Phone: Vital Signs Date Time Vital Sign Value Performing Clinician Pamela hightower 08-02-2024 08:43-0400 Body height 165.[address] Ning Hyman MD Work Phone: [facility] 08-02-2024 08:43-0400 Body mass index (BMI) [Ratio] 30.4 kg/m2 Dr. Ning Hyman MD Work Phone: [facility] 08-02-2024 08:43-0400 Body temperature 97.5 [degF] Dr. Ning Hyman MD Work Phone: [facility] 08-02-2024 08:43-0400 Body weight [address] Ning Hyman MD Work Phone: [facility] 08-02-2024 08:43-0400 Diastolic blood pressure 70 mm[Hg] Dr. Ning Hyman MD Work Phone: [facility] 08-02-2024 08:43-0400 Heart rate 68 /min Dr. Ning Hyman MD Work Phone: [facility] 08-02-2024 08:43-0400 Respiratory rate 16 /min Dr. Ning Hyman MD Work Phone: [facility] 08-02-2024 08:43-0400 SaO2% (BldA) [Mass fraction] 97 % Dr. Ning Hyman MD Work Phone: [facility] 08-02-2024 08:43-0400 Systolic blood pressure 110 mm[Hg] Dr. Ning Hyman MD Work Phone: [facility] 06-12-2023 14:29-0400 Body height 165.[address] Ning Hyman Work Phone: [facility] 06-12-2023 14:27-0400 Body mass index (BMI) [Ratio] 29.6 kg/m2 Dr. Ning Hyman Work Phone: [facility] 06-12-2023 14:27-0400 Body weight 80.[address] Ning Hyman Work Phone: [facility] 06-12-2023 14:27-0400 Diastolic blood pressure 71 mm[Hg] Dr. Ning Hyman Work Phone: [facility] 06-12-2023 14:27-0400 Systolic blood pressure 104 mm[Hg] Dr. Ning Hyman Work Phone: [facility] 06-03-2023 13:14-0400 Body mass index (BMI) [Ratio] 29.2 kg/m2 Dr. Ning Hyman Work Phone: [facility] 06-03-2023 13:14-0400 Body weight 79.[address] Ning Hyman Work Phone: [facility] 06-03-2023 13:14-0400 Diastolic blood pressure 76 mm[Hg] Dr. Ning Hyman Work Phone: [facility] 06-03-2023 13:14-0400 Systolic blood pressure 110 mm[Hg] Dr. Ning Hyman Work Phone: [facility] 04-03-2023 14:47-0500 Body height 165.[address] Ning Hyman Work Phone: [facility] 04-03-2023 14:47-0500 Body mass index (BMI) [Ratio] 28.9 kg/m2 Dr. Ning Hyman Work Phone: [facility] 04-03-2023 14:47-0500 Body temperature 97.4 [degF] Dr. Ning Hyman Work Phone: [facility] 04-03-2023 14:47-0500 Body weight 78.[address] Ning Hyman Work Phone: [facility] 04-03-2023 14:47-0500 Diastolic blood pressure 72 mm[Hg] Dr. Ning Hyman Work Phone: [facility] 04-03-2023 14:47-0500 Heart rate 56 /min Dr. Ning Hyman Work Phone: [facility] 04-03-2023 14:47-0500 Respiratory rate 16 /min Dr. Ning Hyman Work Phone: [facility] 04-03-2023 14:47-0500 SaO2% (BldA) [Mass fraction] 100 % Dr. Ning Hyman Work Phone: [facility] 04-03-2023 14:47-0500 Systolic blood pressure 110 mm[Hg] Dr. Ning Hyman Work Phone: [facility] 09-16-2022 14:08-0400 Body height 165.[address] Ning Hyman Work Phone: [facility] 09-16-2022 14:08-0400 Body mass index (BMI) [Ratio] 27.1 kg/m2 Dr. Ning Hyman Work Phone: [facility] 09-16-2022 14:08-0400 Body weight 73.[address] Ning Hyman Work Phone: [facility] 09-16-2022 14:08-0400 Diastolic blood pressure 72 mm[Hg] Dr. Ning Hyman Work Phone: [facility] 09-16-2022 14:08-0400 Systolic blood pressure 114 mm[Hg] Dr. Ning Hyman Work Phone: [facility] 06-07-2022 09:03-0400 Body height 165.[address] Ning Hyman Work Phone: [facility] 06-07-2022 09:03-0400 Body mass index (BMI) [Ratio] 29.7 kg/m2 Dr. Ning Hyman Work Phone: [facility] 06-07-2022 09:03-0400 Body temperature 97 [degF] Dr. Ning Hyman Work Phone: [facility] 06-07-2022 09:03-0400 Body weight 80.[address] Ning Hyman Work Phone: [facility] 06-07-2022 09:03-0400 Diastolic blood pressure 70 mm[Hg] Dr. Ning Hyman Work Phone: [facility] 06-07-2022 09:03-0400 Heart rate 82 /min Dr. Ning Hyman Work Phone: [facility] 06-07-2022 09:03-0400 Respiratory rate 18 /min Dr. Ning Hyman Work Phone: [facility] 06-07-2022 09:03-0400 SaO2% (BldA) [Mass fraction] 99 % Dr. Ning Hyman Work Phone: [facility] 06-07-2022 09:03-0400 Systolic blood pressure 126 mm[Hg] Dr. Ning Hyman Work Phone: [facility] 04-19-2022 13:51-0500 Body height 165.[address] Ning Hyman Work Phone: [facility] 04-19-2022 13:51-0500 Body mass index (BMI) [Ratio] 29.1 kg/m2 Dr. Ning Hyman Work Phone: [facility] 04-19-2022 13:51-0500 Body temperature 98.4 [degF] Dr. Ning Hyman Work Phone: [facility] 04-19-2022 13:51-0500 Body weight 79.[address] Ning Hyman Work Phone: [facility] 04-19-2022 13:51-0500 Diastolic blood pressure 80 mm[Hg] Dr. Ning Hyman Work Phone: [facility] 04-19-2022 13:51-0500 Heart rate 70 /min Dr. Ning Hyman Work Phone: [facility] 04-19-2022 13:51-0500 Respiratory rate 16 /min Dr. Ning Hyman Work Phone: [facility] 04-19-2022 13:51-0500 SaO2% (BldA) [Mass fraction] 99 % Dr. Ning Hyman Work Phone: [facility] 04-19-2022 13:51-0500 Systolic blood pressure 112 mm[Hg] Dr. Ning Hyman Work Phone: [facility] 12-14-2021 08:06-0400 Body height 165.[address] Ning Hyman Work Phone: [facility] Work Phone: 12-14-2021 08:06-0400 Body mass index (BMI) [Ratio] 27 kg/m2 Dr. Ning Hyman Work Phone: [facility] Work Phone: 12-14-2021 08:06-0400 Body temperature 97.9 [degF] Dr. Ning Hyman Work Phone: [facility] Work Phone: 12-14-2021 08:06-0400 Body weight 73.[address] Ning Hyman Work Phone: [facility] Work Phone: 12-14-2021 08:06-0400 Diastolic blood pressure 74 mm[Hg] Dr. Ning Hyman Work Phone: [facility] Work Phone: 12-14-2021 08:06-0400 Heart rate 66 /min Dr. Ning Hyman Work Phone: [facility] Work Phone: 12-14-2021 08:06-0400 Respiratory rate 16 /min Dr. Ning Hyman Work Phone: [facility] Work Phone: 12-14-2021 08:06-0400 SaO2% (BldA) [Mass fraction] 99 % Dr. Ning Hyman Work Phone: [facility] Work Phone: 12-14-2021 08:06-0400 Systolic blood pressure 128 mm[Hg] Dr. Ning Hyman Work Phone: [facility] Work Phone: Encounters Encounter Date Encounter Type Care Provider Facility Start: 08-02-[address] Ning Hyman MD Work Phone: [facility] Start: 08-02-2024 End: 08-02-[address] Ning Hyman MD Work Phone: [facility] Work Phone: Start: 08-02-2024 End: 08-02-[address] Ning Hyman MD -[facility] Work Phone: Start: 03-31-2024 End: 03-31-2024 ambulatory [facility] Facility:[facility] Start: 03-26-2024 End: 03-26-2024 ambulatory [facility] Facility:[facility] Start: 01-25-2024 End: 01-25-2024 [facility] Start: 01-25-2024 End: 01-25-2024 ambulatory [facility] Facility:[facility] Start: 10-24-2023 End: 10-24-2023 ambulatory [facility] Facility:[facility] Start: 10-24-2023 End: 10-24-2023 ambulatory [facility] Facility:[facility] Start: 06-12-2023 End: 06-12-[address] Ning Hyman Work Phone: [facility] Work Phone: Start: 06-12-2023 End: 06-12-[address] [facility]yman [facility] Work Phone: Start: 06-12-2023 End: 06-12-[address] Ning Hyman Work Phone: [facility] Work Phone: Start: 06-12-2023 End: 06-12-2023 ambulatory [facility] Start: 06-12-2023 End: 06-12-2023 ambulatory [facility] Facility:[facility] Start: 06-03-2023 End: 06-03-[address] Ning Hyman Work Phone: [facility] Work Phone: Start: 06-03-2023 End: 06-03-2023 ambulatory [facility] Start: 04-03-2023 End: 04-03-[address] Ning Hyman Work Phone: [facility] Work Phone: Start: 04-03-2023 End: 04-03-[address] Ning Hyman Work Phone: [facility] Work Phone: Start: 04-03-2023 End: 04-03-[address] Ning Hyman Work Phone: [facility] Work Phone: Start: 09-16-2022 End: 09-16-[address] Ning Hyman Work Phone: [facility] Work Phone: Start: 09-16-2022 End: 09-16-[address] Ning Hyman Work Phone: [facility] Work Phone: Start: 09-16-2022 End: 09-16-[address] Ning Hyman Work Phone: [facility] Work Phone: Start: 06-07-2022 End: 06-07-[address] Ning Hyman Work Phone: [facility] Work Phone: Start: 06-07-2022 End: 06-07-[address] Ning Hyman Work Phone: [facility] Start: 05-28-2022 End: 05-28-[address] Ning Hyman Work Phone: [facility] Work Phone: Start: 05-28-2022 End: 05-28-[address] Ning Hyman [facility] Start: 04-25-2022 End: 04-25-[address] Ning Hyman Work Phone: [facility] Work Phone: Start: 04-25-2022 End: 04-25-[address] Ning Hyman Work Phone: [facility] Start: 04-19-2022 End: 04-19-[address] Ning Hyman Work Phone: [facility] Start: 04-12-2022 End: 04-12-[address] Ning Hyman Work Phone: [facility] Work Phone: Start: 04-12-2022 End: 04-12-[address] Ning Hyman Work Phone: [facility] Start: 12-14-[address] Ning Hyman Work Phone: [facility] Start: 12-14-2021 End: 12-14-2021 Encounter for general adult medical examination without abnormal findings Dr. Ning Hyman Work Phone: [facility] Start: 12-14-2021 End: 12-14-[address] Ning Hyman Work Phone: [facility] Start: 12-13-[address] Last Hyman Work Phone: [facility] Start: 12-13-2021 End: 12-13-[address] Ning Hyman Work Phone: [facility] Work Phone: Start: 12-13-2021 End: 12-13-[address] Ning Hyman Work Phone: [facility] Procedures Date Procedure Procedure Detail Performing Clinician Start: 06-12-[address] Michael Hyman Work Phone: Start: 06-12-2023 Investigation of tra nsfusion reaction Dr. Ning Hyman Work Phone: Start: 06-12-[address] Dayan Hyman Work Phone: Start: 09-16-2022 Cytopathology proced ure, preparation of smear, genital source Dr. Ning Hyman Work Phone: Start: 09-16-2022 Investigation of tra nsfusion reaction Dr. Ning Hyman Work Phone: Start: 05-28-2022 Computed tomography of abdomen and pelvis with contrast Dr. Ning Hyman Work Phone: Start: 04-25-[address] Ning Hyman Work Phone: Urine culture Dr. Ning Hyman Work Phone: Urine culture Dr. Ning Hyman Work Phone: Plan of Treatment Date Care Activity Detail Author Start: 08-02-2024 CBC W Auto Different ial panel - Blood [facility] Start: 08-02-2024 Comprehensive metabo lic 2000 panel - Serum or Plasma [facility] Start: 08-02-2024 Lipid 1996 panel - S patria or Plasma [facility] Start: 04-03-2023 Patient referral [facility] Work Phone: Start: 06-07-2022 Bacteria identified in Urine by Culture Urine Culture [facility] Start: 12-14-2021 Patient referral [facility] Work Phone: Alanine aminotransfe rase [Enzymatic activity/volume] in Serum or Plasma [facility] Albumin [Mass/volume ] in Serum or Plasma [facility] Alkaline phosphatase [Enzymatic activity/volume] in Serum or Plasma [facility] Anion gap in Serum or Plasma [facility] Bacteria identified in Urine by Culture Urine Culture [facility] Bilirubin, total measurement [facility] BUN/Creatinine ratio [facility] Calcium [Mass/volume ] in Serum or Plasma [facility] Carbon dioxide, tota l [Moles/volume] in Central venous blood [facility] Cholesterol [Mass/vo lume] in Serum or Plasma [facility] Cholesterol in HDL [Mass/volume] in Serum or Plasma [facility] Creatinine [Mass/vol ume] in Serum or Plasma [facility] Erythrocyte mean cor puscular volume determination [facility] Glucose [Mass/volume ] in Serum or Plasma [facility] Hematocrit [Volume F raction] of Blood [facility] Hemoglobin [Mass/vol ume] in Blood [facility] Leukocytes [#/volume] in Blood [facility] Low density lipoprot ein cholesterol measurement [facility] Mean corpuscular hem oglobin concentration determination [facility] Mean corpuscular hem oglobin determination [facility] Measurement of renal function [facility] Neutrophil count [facility] Neutrophil percent differential count [facility] Patient referral [facility] Work Phone: Platelets [#/volume] in Blood [facility] Potassium measurement [facility] Red blood cell count [facility] Red cell distributio n width determination [facility] Serum chloride measurement [facility] Sodium measurement [facility] Total cholesterol:HD L ratio measurement [facility] Total protein measurement [facility] Triglycerides measurement [facility] Urea nitrogen [Mass/ volume] in Serum or Plasma [facility] US Abdomen limited [facility] VLDL cholesterol measurement [facility] [place] Date Payer Category Payer Self-pay 2023 Unknown [id number] Unknown [id number] [id number] Unknown [id number] 2.16.8 [id number] Unknown [id number] 2.16.8 [id number] Unknown [id number] 2.16.8 [id number] Unknown [id number] 2.16.8 [id number] Unknown [id number] 2.16.8 [id number] Unknown [id number] 2.16.8 [id number] Unknown [id number] 2.16.8 [id number] Unknown [id number] 2.16.8 [id number] Social History Date Type Detail Facility Start: 12-14-2021 End: 06-03-2023 Tobacco smoking status NHIS Unknown if ever smoked [facility] Start: 1985 Sex Assigned At Female [facility] Start: 08-02-2024 Tobacco smoking stat us NHIS Never smoked tobacco (finding) [facility] Gender Identity Identifies as fe male gender (finding) [facility] Sexual Orientation Heterosexual (finding) [facility] Clinical Notes 05-30-2020 to 04-18-2021 Note Date & Type Note Facility 04-18-2021 Note HNO ID: [id number] Author: Reyna Sagastume, DO Service: ? Author Type: Physician Type: Progress Notes Filed: 04/18/2021 2:46 PM Note Text: SERVICE DATE: 04/18/2021 SERVICE TIME: 1:14 PM Subjective HPI: Divya Sullivan is a 35 year old female who presents for her annual well woman exam. Patient also presents today with concerns regarding vaginal burning and itching. She denies vaginal discharge. She reports that symptoms started in the beginning of March, and lasted off and on for 1 week. She reports that symptoms have not returned. She also reports that she had an episode of intermenstrual spotting last month. Patient reports that she has never had it before, and denies spotting since. Last Pap: 2019, NIL H/o Abnormal Paps: None Gardasil: Never completed Menses: regular LMP: Patient's last menstrual period was 04/01/2021 (exact date). Menarche: 14 yo control: s/p tubal ligation in 2020 Prior contraception: None Sexually active: 1 partner Concern for exposure to STDs: None History of STIs/PID: None Vaginal discharge: None Itching: None Dyspareunia: None Dysuria, urinary frequency or urgency: None Bladder control: None Bowel Concerns: None History of anxiety disorder: None FMH of breast/ovarian/uterine/cervical/colon cancer: paternal aunt with breast cancer (dx 50 yo), paternal cousin with breast cancer Genetic testing: None History reviewed. No pertinent past medical history. PAST SURGICAL HISTORY Procedure Laterality Date - EAR SURGERY HX Right 2000 - LIGATE FALLOPIAN TUBE N/A 08/10/2020 History reviewed. No pertinent family history. Social History Tobacco Use - Smoking status: Never Smoker - Smokeless tobacco: Never Used Substance Use Topics - Alcohol use: Yes Comment: social - Drug use: Never Current Outpatient Medications Medication Sig - Docosahexanoic Acid-Eicosapent (FISH OIL) 120-180 mg capsule Take 2 g by mouth once daily. - BIOTIN 10,000 TABLET - B-complex with vitamin C (VITAMIN B COMPLEX-C ORAL) Take by mouth. - Cranberry 400 mg cap Take by mouth. - Multivitamin capsule Take 1 capsule by mouth once daily. - ibuprofen (MOTRIN) 600 mg tablet Take 1 tablet by mouth every 6 hours as needed for pain. - acetaminophen (TYLENOL EXTRA STRENGTH) 500 mg tablet Take 2 tablets by mouth every 6 hours as needed for pain. - oxyCODONE IR (ROXICODONE) 5 mg immediate release tablet Take 1 tablet by mouth every 6 hours as needed for pain. No current facility-administered medications for this visit. ALLERGIES No Known Allergies Immunization History Administered Date(s) Administered Tdap (Age 7+) 12/20/2009 Review of Systems Constitutional: Negative for fatigue, fever and unexpected weight change. HENT: Negative for congestion, sinus pressure and sneezing. Respiratory: Negative for cough, shortness of breath and wheezing. Cardiovascular: Negative for chest pain. Gastrointestinal: Negative for abdominal distention, abdominal pain, blood in stool, constipation, diarrhea, nausea and vomiting. Genitourinary: Negative for dyspareunia, dysuria, flank pain, frequency, menstrual problem, pelvic pain, urgency, vaginal bleeding, vaginal discharge and vaginal pain. Musculoskeletal: Negative for arthralgias, joint swelling and myalgias. Skin: Negative for rash. Neurological: Negative for dizziness, weakness and headaches. Psychiatric/Behavioral: Negative for behavioral problems and suicidal ideas. I have confirmed and edited as necessary, the PFSH and ROS obtained by others. Objective PHYSICAL EXAM: BP 118/74 Ht 5' 4 (1.63m) Wt 161 lb (73.0kg) LMP 04/01/2021 BMI 27.62 kg/(m2). Physical Exam Constitutional: General: She is not in acute distress. Appearance: Normal appearance. Genitourinary: Vulva normal. No lesions in the vagina. Right Labia: No rash, tenderness or lesions. Left Labia: No tenderness, lesions or rash. No labial fusion noted. No vaginal tenderness or ulceration. Right Adnexa: not tender and no mass present. Left Adnexa: not tender and no mass present. No cervical discharge, lesion or polyp. Uterus is not enlarged or tender. No uterine mass detected. No urethral prolapse present. Bladder is not tender. Breasts: Breasts are symmetrical. Right: No mass, nipple discharge, skin change or tenderness. Left: No mass, nipple discharge, skin change or tenderness. HENT: Head: Normocephalic and atraumatic. Cardiovascular: Rate and Rhythm: Normal rate and regular rhythm. Heart sounds: No murmur heard. Pulmonary: Effort: Pulmonary effort is normal. No respiratory distress. Breath sounds: Normal breath sounds. No wheezing. Abdominal: General: Abdomen is flat. Bowel sounds are normal. There is no distension. Palpations: Abdomen is soft. Tenderness: There is no guarding. Neurological: General: No focal deficit present. Mental Status: She is alert. Mental sta (more content not included)... [facility] 08-29-2020 Note HNO ID: [id number] Author: Roly Davila MD Service: ? Author Type: Physician Type: Progress Notes Filed: 08/29/2020 9:51 AM Note Text: Divya Sullivan is a 35 year old year who presents for her post op exam after her tubal. The patient's concerns are getting back to usual activities. TUBAL: Bilateral tubal fulguration POST OP COURSE:NOT COMPLICATED} BLADDER: No burning with urination, blood in urine or incontinence.,No change in vaginal dischage, burning, dryness or itching. BOWEL: No blood in stool, pain with BM, tarry stool, persistent diarrhea or constipation Medical, Surgical, Family and Social histories reviewed. BP 112/68 Ht 5' 4 (1.63m) Wt 154 lb (69.9kg) LMP 08/09/2020 BMI 26.42 kg/(m2). EXAM: pleasant,well developed,well nourished,white female in no apparent distress ABDOMEN: Benign, Soft, non-tender, no hernia, port sites healing well PELVIC:deferred BIMANUAL: deferred NEURO: alert and oriented x3,exam grossly non-focal EXTREMITIES: Warm,No cyanosis, clubbing,No edema,nontender ASSESSMENT: Status post tubal, Patient is doing well. PLAN: Return to Clinic for annual or as needed. Roly Davila MD Total time in direct patient contact = 15 min. Greater than 50% of the time was spent in counseling and/or coordination of care. [facility] 08-10-2020 Note HNO ID: [id number] Author: Nhi Lipscomb APRN.SWEEPER OPERATOR [employer]IGHWAYS Service: Anesthesiology Author Type: Nurse Grinding And Polishing Laborer Type: Anesthesia Procedure Notes Filed: 08/10/2020 11:49 AM Note Text: ANESTHESIOLOGY PROCEDURE NOTE Airway General Information Procedure Start Time/Medication Administration: 08/10/2020 11:32 AM Patient location during procedure: OR Patient identity confirmed: arm band and patient Staffing Anesthesiologist: Jef Oden MD SWEEPER OPERATOR [employer]IGHWAYS: Nhi Lipscomb APRN.SWEEPER OPERATOR [employer]IGH[employer] Performed by: RODY Indications and Patient Condition Preoxygenated: yes Patient position: sniffing Manual In-Line Stabilization: No Difficult Mask: No Indications for airway management: anesthesia anesthesia circuit Method: asleep Cricoid Pressure: No Final Airway Details Final airway type: endotracheal airway Final Endotracheal Airway: ETT Cuffed: yes Successful intubation technique: direct laryngoscopy Endotracheal tube insertion site: oral Blade: Jo Blade size: #4 ETT size (mm): 7.5 Measured from: lips Measurement (cm): 21 Placement verified by: chest auscultation and capnometry Cormack-Lehane Classification: grade IIa - partial view of glottis Number of attempts at approach: 1 Failed airway: no Unrecognized esophageal intubation: no Airway not difficult SIGNATURE: Nhi Lipscomb APRN.SWEEPER OPERATOR [employer] PATIENT NAME: Divya Sullivan DATE: August 10, 2020 TIME: 11:49 AM CSN: [id number] [facility] 05-30-2020 Note HNO ID: [id number] Author: Roly Davila Service: ? Author Type: Physician Type: Progress Notes Filed: 05/30/2020 3:49 PM Note Text: Divya Sullivan is a 34 year old female who presents with a chief complaint of Consult (discuss tubal) SUBJECTIVE Here to discuss permanent sterilization. Youngest child is now 11. She and are definite about not having anymore children. is willing to have vas, but she prefers that she be the one to be sterilized. Laparoscopic tubal excision discussed in detail. Vas discussed in detail. R/B/A discussed. Consent form signed. Obstetric History T0 L4 SAB0 TAB0 Ectopic0 Multiple0 Live Births0 OBJECTIVE ALLERGIES No Known Allergies No current outpatient medications on file. No current facility-administered medications for this visit. Review of Systems Constitutional: Negative for fatigue and unintentional weight changes Gastrointestinal: Negative for diarrhea, bloody stool, nausea/vomiting and constipation Genitourinary: See HPI Medical, Surgical, Family and Social histories reviewed. Physical Exam Wt 170 lb (77.1kg) LMP 05/20/2020 General: No Acute Distress, Well nourished, Well developed, No obvious deformities and Alert/Oriented x 3 Mood/Affect: Normal ASS/PLAN: - Sterilization - Schedule tubal excision. [facility] Total time in direct patient contact = 20 min. Greater than 50% of the time was spent in counseling and/or coordination of care. [facility] Evaluation note Diagnosis Onset Date Abnormal urinalysis acute Health care maintenance acut e Menstrual irregularity acute Vaginal dryness acute [facility] Work Phone: Evaluation note* Diagnosis Onset Date Resolution Status Abnormal urinalysis acute Left flank pain [facility] Work Phone: Evaluation note* Diagnosis Onset Date Resolution Status Abnormal urinalysis acute Left flank pain chronic Burning with urination acute Vaginosis acute [facility] Work Phone: Evaluation note* Diagnosis Onset Date Resolution Status Burning with urination resol qasim Vaginal pain acute [facility] Work Phone: Evaluation note* Diagnosis Onset Date Resolution Status Burning with urination chron ic Left flank pain chronic [facility] Work Phone: Evaluation note* Diagnosis Onset Date Resolution Status Burning with urination chron ic Left flank pain chronic Vaginal pain acute Inclusion cyst noneactive Vaginal pain acute Burning with urination chron ic Inclusion cyst noneactive Vaginitis noneactive [facility] Work Phone: Evaluation noteNo assessment information available [facility] Work Phone: Hospital Discharge instructionsAmbulatory Orders* LOADING UNIT OPERATOR CRIMPING Location: None Selected [facility] Work Phone: Reason for referral (narrative)No reason for referral [facility] Work Phone: Summary Purpose Family History Relationship Condition Age at Onset Recorded Date/T mando Not Specified Alcoholism Unknown grandfather Malignant neoplasm Unknown mother High blood cholesterol Unknown Relationship Condition Age at Onset Recorded Date/T mando Not Specified Alcoholism Unknown grandfather Malignant neoplasm of stomach Unknown mother High blood cholesterol Unknown aunt Malignant neoplasm of breast Unknown Advance Directives No Advanced Directives Records FoundNo Advanced Directives Records FoundNo Advanced Directives Records Found Chief Complaint and Reason for Visit 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 Reason for Visit Abnormal urinalysis Health care maintenance Menstrual irregularity Vaginal dryness Chief Complaint EORDERS FLANK PAIN Reason for Visit Abnormal urinalysis Left flank pain Chief Complaint EORDERS FLANK PAIN LEFT FLANK PAIN Reason for Visit Abnormal urinalysis Left flank pain Chief Complaint EORDERS FLANK PAIN LEFT FLANK PAIN ABNORMAL US, LEFT FLANK PAIN Reason for Visit Abnormal urinalysis Left flank pain Chief Complaint EORDERS FLANK PAIN LEFT FLANK PAIN ABNORMAL US, LEFT FLANK PAIN uti INT LABS Reason for Visit Abnormal urinalysis Left flank pain Burning with urination Vaginosis Chief Complaint ABNORMAL US, LEFT FL ANK PAIN uti INT LABS Dysuria, ref by Dr Hyman Reason for Visit Burning with urinati on Vaginal pain Chief Complaint FLANK/KIDNEY PAIN Reason for Visit Burning with urinati on Left flank pain Chief Complaint FLANK/KIDNEY PAIN Vaginal Pain 1 W FU Reason for Visit Burning with urinati on Left flank pain Vaginal pain Inclusion cyst Vaginal pain Burning with urination Inclusion cyst Vaginitis Chief Complaint Admit Date YEARLY August 02, 2024 8:35 am Additional Source Comments INFORMATION SOURCE (unrecogn ized section and content) DATE CREATED AUTHOR 04/28/2021 [facility] DATE CREATED AUTHOR AUTHOR'S ORGANIZ ATION 05/10/2021 [facility] DATE CREATED AUTHOR AUTHOR'S ORGANIZ ATION 04/16/[address] [facility] Goals (unrecognized section and content) Goals may be documented in a n alternate sectionGoals may be documented in an alternate sectionGoals may be documented in an alternate sectionGoals may be documented in an alternate sectionGoals may be documented in an alternate sectionGoals may be documented in an alternate sectionGoals may be documented in an alternate sectionGoals may be documented in an alternate sectionGoals may be documented in an alternate section Care Teams (unrecognized sec tion and content) Team Status: Active Member Role Status Dates Dr. Ning Hyman MD Primary Care Provider Active Team Status: Inactive Member Role Status Dates Dr. Ning Hyman MD Primary Care P vidal, Attending Provider, Referring Provider Active Team Status: Inactive Member Role Status Dates Dr. Ning Hyman MD Primary Care Provider, Atten ding Provider Active Team Status: Inactive Member Role Status Dates Dr. Ning Hyman MD Primary Care Provider Active Roly Zavala CONCRETE BUILDINGS ASSEMBLER, CONCRETE BUILDINGS ASSEMBLER-C Attending Provider, Referring Prov ider Active Team Status: Inactive Member Role Status Dates Dr. Ning Hyman MD Primary Care Provider, Refer ring Provider Active Gerri Bautista [employer]CRETE BUILDINGS ASSEMBLER, CONCRETE BUILDINGS ASSEMBLER-C Attending Provider Active Team Status: Inactive Member Role Status Dates Dr. Ning Hyman MD Primary Care Provider Active Gerri Bautista CONCRETE BUILDINGS ASSEMBLER, CONCRETE BUILDINGS ASSEMBLER-C Attending Provider, Referring Provider Active Team Status: Inactive Member Role Status Dates Dr. Ning Hyman MD Primary Care Provider, Refer ring Provider Active OBED Lui Attending Provider Active Team Status: Inactive Member Role Status Dates Dr. Ning Hyman MD Primary Care Provider Active OBED Lui Attending Provider, Referring Pr ovider Active Team Status: Inactive Member Role Status Dates Dr. Ning Hyman MD Primary Care Provider Active Start: August 02, 2024 End: August 02, 2024 Dr. Ning Hyman MD Attending Provider Active Start: August 02, 2024 End: August 02, 2024 Dr. Ning Hyman MD Referring Provider Active Start: August 02, 2024 End: August 02, 2024 Team Status: Active Member Role Status Dates Dr. Ning Hyman MD Primary Care Provider Active Start: August 02, 2024 Dr. Ning Hyman MD Attending Provider Active Start: August 02, 2024 Dr. Ning Hyman MD Referring Provider Active Start: August 02, 2024 FOR RECORDS PERTAINING TO PATIENTS WHO ARE OR HAVE BEEN ENROLLED IN A CHEMICAL DEPENDENCY/SUBSTANCEABUSE PROGRAM, SOME INFORMATION MAY BE OMITTED. This clinical summary was aggregated from multiple sources. Caution should be exercised in using it in the provision of clinical care. This summary normalizes information from multiple sources, and as a consequence, information in this document may materially change the coding, format and clinical context of patient data. In addition, data may be omitted in some cases. CLINICAL DECISIONS SHOULD BE BASED ON THE PRIMARY CLINICAL RECORDS. [facility] [employer] [facility]. provides no warranty or guarantee of the accuracy or completeness of information in this document.
[2024-08-03 16:04] LABS: ALB/GLOB Ratio 1.3 RATIO (0.9-2.4); AST(SGOT) 22 U/L (<=31); Alanine Aminotransfer ALT/SGPT 25 U/L (<=34); Albumin, Serum 3.9 g/dL (3.5-5.0); Alkaline Phosphatase 85 U/L (35-104); Anion Gap 12 (5-15); BUN 10 mg/dL (4-19); BUN/Creat Ratio 11.6 RATIO (10-20); Calcium,Total 8.9 mg/dL (7.6-11.0); Carbon Dioxide 20.5 mmol/L (21.0-32.0); Chloride 103 mmol/L (98-108); Cholesterol 150 mg/dL (<=200); Creatinine, Serum 0.87 mg/dL (0.70-1.20); EST Glomerular Filtration Rate 86 (>60); Globulin 2.9 g/dL (2.2-4.2); Glucose 85 mg/dL (70-99); High Density Lipoprotein 50 mg/dL; Low Density Lipoprotein Calc. 79 mg/dL; Potassium 4.2 mmol/L (3.3-5.1); Protein, Total 6.8 g/dL (5.9-8.4); Sodium Level 136 mmol/L (133-145); Total Bilirubin 0.36 mg/dL (0.00-1.30); Triglycerides 103 mg/dL; Very Low Density Lipoprotein 21 mg/dL (5-40); cholesterol:hdl ratio screen 2.98
== END | disposition home or self-care (01) ==
LOC: BIMLAB 09:07
PROVIDERS: PCP Internal Medicine; Referring Provider Internal Medicine; Visit Provider Internal Medicine
DX: Z00.00 Encounter for general adult medical examination without abnormal findings (principal); D64.9 Anemia, unspecified
CPT/HCPCS: 36415; 80053; 80061; 82728; 83540; 83550; 85025

== ENCOUNTER → 2024-11-18 | Outpatient (CLI) | payer BC, SELFPAY | END | disposition home or self-care (01) | LOC: LABSPEC 16:11 | PROVIDERS: PCP Internal Medicine; Visit Provider Nurse Practitioner Family | DX: N94.89 Other specified conditions associated with female genital organs and menstrual cycle (principal); N89.8 Other specified noninflammatory disorders of vagina | CPT/HCPCS: 87070; 87077; 87086; 87088; 87205 ==

== ENCOUNTER → 2024-12-15 | Outpatient (CLI) | payer BC, SELFPAY | END | disposition home or self-care (01) | LOC: LABSPEC 09:57 | PROVIDERS: PCP Internal Medicine; Visit Provider Nurse Practitioner Women's Health | DX: R30.0 Dysuria (principal) | CPT/HCPCS: 87086 ==